=== PATIENT | male | born 1950 | race Caucasian/White ===

== ENCOUNTER → 2018-07-11 09:46 | Outpatient (CLI) | payer OTHER, SELFPAY ==
[2018-07-11 11:33] LABS: Alanine Aminotransferase 22 IU/L (21-72); Albumin 4.5 g/dL (3.5-5.0); Albumin Globulin Ratio 1.7 (1.0-2.8); Alkaline Phosphatase 66 U/L (38-126); Aspartate Aminotransferase 20 IU/L (17-59); BUN Creatinine Ratio 26.3 (6-22); Bilirubin Total 2.5 mg/dL (0.2-1.3); Blood Urea Nitrogen 21 mg/dL (9-20); Calcium 9.3 mg/dL (8.4-10.2); Carbon Dioxide 30 mmol/L (22-32); Chloride 105 mmol/L (98-107); Cholesterol 237 mg/dL (140-199); Estimated Glomerular Filt Rate > 60.0 mL/min (>60); Globulin 2.6 g/dL (1.7-4.1); Glucose 91 mg/dL (80-110); HDL Cholesterol 58 mg/dL (40-60); HEMOLYSIS < 15 (0-50); LDL Cholesterol Calculated 160 mg/dL (<100); Potassium 4.2 mmol/L (3.4-5.1); Sodium 144 mmol/L (137-145); Total Protein 7.1 g/dL (6.3-8.2); Triglycerides 95 mg/dL (35-150)
[2018-07-11 12:00] LABS: Prostate Specific Antigen Scrn 1.02 ng/mL (0.1-4.0)
== END ==
PROVIDERS: PCP Internal Medicine; Visit Provider Internal Medicine
DX: E78.5 Hyperlipidemia, unspecified (principal); Z12.5 Encounter for screening for malignant neoplasm of prostate
CPT/HCPCS: 36415; 80053; 80061; G0103

== ENCOUNTER 2018-07-31 13:31 | Day surgery (SDC) | payer OTHER, SELFPAY ==
[2018-07-31 15:10] VITALS: BP 112/73; PULSE 77; RESP 16; TEMP 36.2; O2SAT 98; BMI 25.8
[2018-07-31] MEDS: PROPARACAINE 0.5% OPHTH SOL 2 DROPS EYE-OP (15:18)
[2018-07-31] MEDS: CATARACT EYE COMPOUND (10 DROPS/SYRINGE) 3 DROPS EYE-OP (15:20)
--- NOTE | 2018-07-31 15:50 | PM.PREOP ---
Pre-operative Note Interval Note Pre-op Check: Yes History & Physical Reviewed by Physician Changes: No
[2018-07-31] MEDS: BALANCED SALT IRRIG SOLN NO.2 500 ML, EPINEPHrine 1 MG IRR (16:10)
[2018-07-31] MEDS: MOXIFLOXACIN OPHTH DROPS 3 ML BOTTLE 2 DROPS INJ (16:10)
[2018-07-31] MEDS: PHENYLEPHRINE/LIDOCAINE VIAL (OR) 0.2 ML EYE-OP (16:10)
[2018-07-31] MEDS: CHONDROIDTIN/SOD HYALURONATE 1.05 ML SYRINGE INTRAOCULA (16:10)
[2018-07-31] MEDS: TETRACAINE 0.5% OPHTH DROPS 15 ML 2 DROPS EYE-RIGHT (16:12)
--- NOTE | 2018-07-31 16:31 | PM.OP.1 ---
Procedure & Clinicians Procedure: cataract extraction with intraocular lens implant, right Same procedure as scheduled: Yes Surgeon: Mark Laboy Click Yes if Unassisted: Yes Anesthesia Type: MAC +/- Operative Notes Closure Type: not applicable Procedure in detail: The patient was brought to the operating suite. The correct patient, surgical site and lens were confirmed. 0.5 % tetracaine drops were placed in the right eye. The patient was prepped and draped in the typical sterile manner. A lid speculum was placed in the eye. A paracentesis port was created with a side-port blade. 0.1 mL of 1% preservative free lidocaine was injected into the anterior chamber. Viscoelastic was injected into the anterior chamber. A 2.6mm keratome was used to create a clear corneal temporal incision. Cystotome and Utrata forceps were used to create a continuous curvilinear capsulorrhexis. Balanced salt solution was used to hydrodissect the nucleus. Phacoemulsification was used to remove the lens. The capsular bag was inflated with viscoelastic. A Han ZBOO 15.5 D lens was inserted into the capsule. Viscoelastic was removed and the wound hydrated. The wound was found to be leak free and the eye was assessed to be at normal physiologic pressure. 0.1mL Vigamox was injected into the anterior chamber. The lid speculum was removed and the patient left the operating room in excellent condition. Complications: none Condition: stable Disposition: same day surgery
[2018-07-31 16:35] VITALS: BP 109/58; PULSE 76; RESP 15; TEMP 36.9; O2SAT 98
--- NOTE | 2018-07-31 16:35 | PM.PREOP ---
Pre-operative Note Interval Note Pre-op Check: Yes History & Physical Reviewed by Physician Changes: No
== END 2018-07-31 16:47 ==
LOC: OR 13:34
PROVIDERS: Ophthalmology; PCP Internal Medicine; Visit Provider Ophthalmology
DX: H25.11 Age-related nuclear cataract, right eye (principal)
CPT/HCPCS: J0171; J2250; J2704

== ENCOUNTER 2018-09-04 11:46 | Day surgery (SDC) | payer OTHER, SELFPAY ==
[2018-09-04 12:15] VITALS: BP 117/77; PULSE 85; RESP 15; TEMP 36.5; O2SAT 99; BMI 26.6
[2018-09-04] MEDS: PROPARACAINE 0.5% OPHTH SOL 2 DROPS EYE-OP (12:20)
[2018-09-04] MEDS: CATARACT EYE COMPOUND (10 DROPS/SYRINGE) 3 DROPS EYE-OP ×3 (12:25→12:35)
--- NOTE | 2018-09-04 12:50 | PM.PREOP ---
Pre-operative Note Interval Note Pre-op Check: Yes History & Physical Reviewed by Physician Changes: No
[2018-09-04] MEDS: PHENYLEPHRINE/LIDOCAINE VIAL (OR) 0.2 ML EYE-OP (14:09)
[2018-09-04] MEDS: MOXIFLOXACIN OPHTH DROPS 3 ML BOTTLE 2 DROPS INJ (14:09)
[2018-09-04] MEDS: CHONDROIDTIN/SOD HYALURONATE 1.05 ML SYRINGE INTRAOCULA (14:09)
[2018-09-04] MEDS: BALANCED SALT IRRIG SOLN NO.2 500 ML, EPINEPHrine 1 MG IRR (14:10)
[2018-09-04] MEDS: TETRACAINE 0.5% OPHTH DROPS 15 ML 2 DROPS EYE-LEFT (14:10)
[2018-09-04] MEDS: LIDOCAINE 2% INJ SDV 0.5 ML TOP (14:11)
--- NOTE | 2018-09-04 14:36 | PM.OP.1 ---
Procedure & Clinicians Procedure: cataract extraction with intraocular lens implant left Same procedure as scheduled: Yes Indications: Visually significant cataract, Nuclear sclerosis Surgeon: Mark Laboy Anesthesia Type: MAC +/- Operative Notes Procedure in detail: The patient was brought to the operating suite. The correct patient, surgical site and lens were confirmed. 0.5 % tetracaine drops were placed in the left eye. The patient was prepped and draped in the typical sterile manner. A lid speculum was placed in the eye. A paracentesis port was created with a side-port blade. 0.1 mL of 1% preservative free lidocaine was injected into the anterior chamber. Viscoelastic was injected into the anterior chamber. A 2.6mm keratome was used to create a clear corneal temporal incision. Cystotome and Utrata forceps were used to create a continuous curvilinear capsulorrhexis. Balanced salt solution was used to hydrodissect the nucleus. Phacoemulsification was used to remove the lens. The capsular bag was inflated with viscoelastic. A Han ZBOO 16.0D lens was inserted into the capsule. Viscoelastic was removed and the wound hydrated, Resure glue was used to reinforce the wound. The wound was found to be leak free and the eye was assessed to be at normal physiologic pressure. 0.1mL Vigamox was injected into the anterior chamber. The lid speculum was removed and the patient left the operating room in excellent condition. Complications: none Condition: stable Disposition: same day surgery
[2018-09-04 15:37] VITALS: PULSE 67; RESP 16; TEMP 36.1; O2SAT 96
== END 2018-09-04 15:05 | disposition home or self-care (01) ==
PROVIDERS: PCP Internal Medicine; Visit Provider Ophthalmology
DX: H25.12 Age-related nuclear cataract, left eye (principal)
CPT/HCPCS: J0171; J2250; J3010

== ENCOUNTER 2019-04-26 10:20 | Emergency (ER) | payer OTHER, SELFPAY ==
[2019-04-26 10:26] VITALS: BP 144/96; PULSE 98; RESP 16; TEMP 36.5; O2SAT 100; BMI 26.6
--- NOTE | 2019-04-26 11:19 | ED.BACK ---
HPI - Back Pain/Injury <LISSA SchmittP - Last Filed: 04/27/19 03:55> General Chief Complaint: Back Pain/Injury Stated Complaint: Back pain Time Seen by Provider: 04/26/19 11:19 Source: patient Mode of arrival: ambulatory Limitations: no limitations History of Present Illness HPI Narrative: This is a pleasant 69-year-old gentlemen, smoker, who presents to ED with nonradiating left lower back pain for 1 week. The patient denies any urinary symptoms such as urgency, frequency, dysuria, hematuria. The patient reports pain aggravates with movements, bearing weight or changing in positions. The patient is intermittent and rates at 1/10 at this time but at times it increases to 8 to 9/10. He denies fever, chills, nausea, vomiting, weakness to extremities, tingling numbness to the groin, incontinence, recent back injury, trauma, heavy lifting. He has no previous history of back pain per patient. Related Data Allergies Allergy/AdvReac Type Severity Reaction Status Date / Time Sulfa (Sulfonamide Allergy Verified 04/26/19 10:26 Antibiotics) Review of Systems <Polo BelloMerLISSA FordP - Last Filed: 04/27/19 03:55> Review of Systems General: Denies fever, chills, fatigue, malaise, sweats. HEENT: Denies sinus pain, ear pain, sore throat, difficulty swallowing, dizziness. Respiratory: Denies dyspnea, cough, wheezing, hemoptysis, sputum. Cardiovascular: Denies chest pain, palpitations, orthopnea, edema. Gastrointestinal: Denies nausea, vomiting, abdominal pain, diarrhea, constipation, melena. : See HPI Musculoskeletal: See HPI Skin: Denies rash, skin lesions, or other. Neurologic: Denies weakness, headache, numbness, change in speech, confusion, seizures, incoordination. Psychiatric: No concerning psychosocial issues. 12-point review of systems is negative except for those stated above. 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 Head: Normal cephalic, atraumatic. No scalp or temporal tenderness, palpable mass or rash. EYES: Pupils are equal, round, and reactive to light and accommodation. Extraocular muscles are intact bilaterally. There is no subconjunctival hemorrhage, exudate and sclera non-icteric. ENT: Nose without bleeding, purulent discharge. Mucous membrane moist, no mucosal lesion. Throat without erythema, tonsillar hypertrophy or exudate. Uvula in midline, airway patent. Neck: Trachea in midline. No JVD, non-tender without lymphadenopathy. No masses or thyroid megaly. Supple, non-tender and meningeal signs. CARDIAC: Normal regular rate and rhythm without murmurs, gallops, or rubs. No chest wall tenderness. No peripheral edema, cyanosis or pallor. Capillary refill is less than 2 seconds. RESPIRATORY: Lungs are cleat to auscultate bilaterally. No cough, wheezes, rales, or rhonchi. No stridor, respiratory distress, increase work of breathing, or accessary muscle used. ABD: Abdomen soft, nontender and non-distended. No guarding or rebound tenderness to palpate. Bowel sounds are normal in all 4 quadrants. There is no palpable masses or organomegaly. EXT: Full painless ROM of all extremities with no loss of sensation, strength, effusion or edema. SKIN: Warm, dry, normal color for patient. No erythema, lesions or rash. NEUROLOGICAL: Alert and oriented to place, time and person. Sensation and motor function intact bilaterally. No facial droops, dysphasia. PSYCHIATRIC: Good judgement and reason, without hallucinations, abnormal affect or abnormal behaviors during the examination. Initial Vital Signs Initial Vital Signs: Vital Signs Temperature 97.7 F 04/26/19 10:26 Pulse Rate 98 H 04/26/19 10:26 Respiratory Rate 16 04/26/19 10:26 Blood Pressure 144/96 H 04/26/19 10:26 Pulse Oximetry 100 04/26/19 10:26 Back/Spine/Pelvis Back: normal to inspection, back tenderness, No CVA tenderness, No ecchymosis, No erythema, No mass, No sacral edema and No warmth Thoracic/Lumbar Spine: thoracic and lumbar spine normal to inspection, straight leg raise negative bilaterally, pain with thoraco-lumbar ROM, paraspinal tenderness, No thoracic spinal tenderness and No lumbar spinal tenderness <DO Mer Vila Last Filed: 04/27/19 08:27> Initial Vital Signs Initial Vital Signs: Vital Signs Temperature 97.7 F 04/26/19 10:26 Pulse Rate 98 H 04/26/19 10:26 Respiratory Rate 16 04/26/19 10:26 Blood Pressure 144/96 H 04/26/19 10:26 Pulse Oximetry 100 04/26/19 10:26 Course <LISSA SchmittP - Last Filed: 04/27/19 03:55> Orders Ordered: ED Orders 04/26/19 11:32 XR lumbar spine 2-3V Stat Vital Signs - 8 hr 04/26/19 10:26 Temperature 97.7 F Pulse Rate 98 H Respiratory Rate 16 Blood Pressure 144/96 H Pulse Oximetry 100 <DO Mer Vila Last Filed: 04/27/19 08:27> Orders Ordered: ED Orders 04/26/19 11:32 XR lumbar spine 2-3V Stat Vital Signs - 8 hr 04/26/19 10:26 Temperature 97.7 F Pulse Rate 98 H Respiratory Rate 16 Blood Pressure 144/96 H Pulse Oximetry 100 MDM - Back Pain/Injury <LISSA SchmittP - Last Filed: 04/27/19 03:55> Differential Diagnosis Differential diagnosis: Likely strain of lumbar region, pyelonephritis and other (kidney stone) Medical Records Attestation: I reviewed the patient's medical records. Lab Data Attestation: I reviewed the patient's lab results. Urine Dip Bedside Urine Glucose Negative Bedside Urine Bilirubin - Negative Bedside Urine Ketone - Negative Urine Specific [place] 1.020 Bedside Urine Occult Blood - Negative Bedside Urine pH 6.5 Bedside Urine Protein - Negative Bedside Urine Urobilinogen +/- 1mg Bedside Urine Nitrite - Negative Bedside Urine Leukocytes - Negative Esterase Imaging Data XR-lumbar: Radiologist's impression: [facility] [address] [place] [address] XRay Report Signed Patient: Jono Thornton DMR#: [id number] : 8Acct:[id number] Age/Sex: 69 / MDate of Service: 04/26/19 Loc: ED Accession Number: [id number] Procedure: XR lumbar spine 2-3V Ordering Provider: Polo Sandoval PROCEDURE: XR LUMBAR SPINE 2-3V INDICATIONS: L low back pain TECHNIQUE: 3 views of the lumbar spine were acquired. COMPARISON: None. FINDINGS: Bones: Moderate dextroconvex scoliosis is seen. There is moderate disc space narrowing seen at T12-L1, L1-L2, and L2-L3. Endplate irregularity and sclerosis are seen, which are most prominent at the L2-L3 level. Relatively prominent lower lumbar spine facet arthropathy is seen. No displaced fractures are seen. No suspicious lytic or blastic lesions are seen. 5 nonrib-bearing, lumbar type vertebral bodies are seen. Soft tissues: Overlying bowel gas pattern is normal. No suspicious soft tissue calcifications. IMPRESSION: Moderate dextroconvex scoliosis and associated degenerative changes. No acute abnormality is seen by plain film. Dictated by: Chilo Montilla M.D. on 04/26/2019 at 10:56 Approved by: Chilo Montilla M.D. on 04/26/2019 at 10:58 [facility] Narrative Medical decision making narrative: This is a pleasant 69 year old gentleman who presents with non radiating left lower back pain. He denies urinary symptoms, incontinence, saddle anesthesia, fever chills, abdominal pain, previous back injuries or trauma. And showed no urine nitrite or leukocytes Estrase or blood. Since there was no hematuria no further imaging test was done to rule out kidney stone. Given patient's history with aggravating pain factors, lumbar x-ray test was done. The x-ray test indicates no displaced fractures no blastic lesions were seen. Impression of x-ray was moderate dextro convex scoliosis and associated degenerative changes. The patient was advised to take [id number] Tylenol and/or Motrin for pain management. Rest his back for next 3 days, support his back during sleep on a firm mattress, pillows behind his knees and to use warm pack. Start light stretching when acute pain has subsided. Patient was advised to follow with his primary care physician in 2-3 days for re-evaluation and possible referral to physical therapy or further imaging test. All questions were answered at this time and the patient agrees with treatment plan. Return precautions were discussed with patient such as saddle anesthesia, incontinence, fevers/chills, severe pain, weakness to extremities, chest pain, difficulty breathing, unable to tolerate fluid. The patient was ambulatory out of the ER in stable gaits. <Shonna Wang DO - Last Filed: 04/27/19 08:27> Lab Data Urine Dip Bedside Urine Glucose Negative Bedside Urine Bilirubin - Negative Bedside Urine Ketone - Negative Urine Specific [place] 1.020 Bedside Urine Occult Blood - Negative Bedside Urine pH 6.5 Bedside Urine Protein - Negative Bedside Urine Urobilinogen +/- 1mg Bedside Urine Nitrite - Negative Bedside Urine Leukocytes - Negative Esterase Discharge Plan Departure Patient Disposition: Home Clinical Impression: Back pain Qualifiers: Back pain location: low back pain Chronicity: acute Back pain laterality: left Sciatica presence: without sciatica Qualified Code(s): M54.5 - Low back pain Discharge Date/Time: 04/26/19 13:25 Interventions: ED Discharge Assessment Last Done: 04/26/19 13:24 Instructions: DI for Low Back Pain, Scoliosis-Adult Activity Restrictions/Additional Instructions: You have been diagnosed with [ low back pain. Your urine did not show of occult blood and does not appears to be having a kidney stone. However, the low back xray showed scoliosis and degenerative joint changes in low back]. What to do: *Take your medications as directed. Please take [id number] Tylenol, or NSAIDs including ibuprofen as needed for the back pain. Please take ibuprofen/Motrin with food or milk to decrease stomach irritation. When the acute pain is over stretching is helpful. You could use warm pack to relax your back muscle. Limit her activities until your back pain improves. *Follow up with your primary care provider in 2-3 days, call for an appointment. Let them know you were seen in the ED and that we asked you to be seen in follow up. *Return to ED if you have any new, worsening, or concerning symptoms, such as [fever, chills, increasing pain, nausea, vomiting, chest pain, breathing difficulty, decreased sensation in her perineum area, incontinence or any acute concerns]. Referrals: Markus Boone MD [Primary Care Provider] - <Shonna Wang DO - Last Filed: 04/27/19 08:27> Cosign ED Attending Cosignature Attestation: I was immediately available in the department for consultation, case and plan was discussed. This documentation has been reviewed and I agree with assessment and plan. Supervised by Shonna Wang DO
--- NOTE | 2019-04-26 11:32 | DI.RAD.S_ITS ---
PROCEDURE: XR LUMBAR SPINE 2-3V INDICATIONS: L low back pain TECHNIQUE: 3 views of the lumbar spine were acquired. COMPARISON: None. FINDINGS: Bones: Moderate dextroconvex scoliosis is seen. There is moderate disc space narrowing seen at T12-L1, L1-L2, and L2-L3. Endplate irregularity and sclerosis are seen, which are most prominent at the L2-L3 level. Relatively prominent lower lumbar spine facet arthropathy is seen. No displaced fractures are seen. No suspicious lytic or blastic lesions are seen. 5 nonrib-bearing, lumbar type vertebral bodies are seen. Soft tissues: Overlying bowel gas pattern is normal. No suspicious soft tissue calcifications. IMPRESSION: Moderate dextroconvex scoliosis and associated degenerative changes. No acute abnormality is seen by plain film. Dictated by: Chilo Montilla M.D. on 04/26/2019 at 10:56 Approved by: Chilo Montilla M.D. on 04/26/2019 at 10:58
--- NOTE | 2019-04-26 12:04 | ED_ITS ---
HPI - Back Pain/Injury <LISSA SchmittP - Last Filed: 04/27/19 03:55> General Chief Complaint: Back Pain/Injury Stated Complaint: Back pain Time Seen by Provider: 04/26/19 11:19 Source: patient Mode of arrival: ambulatory Limitations: no limitations History of Present Illness HPI Narrative: This is a pleasant 69-year-old gentlemen, smoker, who presents to ED with nonradiating left lower back pain for 1 week. The patient denies any urinary symptoms such as urgency, frequency, dysuria, hematuria. The patient reports pain aggravates with movements, bearing weight or changing in positions. The patient is intermittent and rates at 1/10 at this time but at times it increases to 8 to 9/10. He denies fever, chills, nausea, vomiting, weakness to extremities, tingling numbness to the groin, incontinence, recent back injury, trauma, heavy lifting. He has no previous history of back pain per patient. Related Data Allergies Allergy/AdvReac Type Severity Reaction Status Date / Time Sulfa (Sulfonamide Allergy Verified 04/26/19 10:26 Antibiotics) Review of Systems <Polo BelloMerLISSA FordP - Last Filed: 04/27/19 03:55> Review of Systems General: Denies fever, chills, fatigue, malaise, sweats. HEENT: Denies sinus pain, ear pain, sore throat, difficulty swallowing, dizziness. Respiratory: Denies dyspnea, cough, wheezing, hemoptysis, sputum. Cardiovascular: Denies chest pain, palpitations, orthopnea, edema. Gastrointestinal: Denies nausea, vomiting, abdominal pain, diarrhea, constipation, melena. : See HPI Musculoskeletal: See HPI Skin: Denies rash, skin lesions, or other. Neurologic: Denies weakness, headache, numbness, change in speech, confusion, seizures, incoordination. Psychiatric: No concerning psychosocial issues. 12-point review of systems is negative except for those stated above. 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 Head: Normal cephalic, atraumatic. No scalp or temporal tenderness, palpable mass or rash. EYES: Pupils are equal, round, and reactive to light and accommodation. Extraocular muscles are intact bilaterally. There is no subconjunctival hemorrhage, exudate and sclera non-icteric. ENT: Nose without bleeding, purulent discharge. Mucous membrane moist, no mucosal lesion. Throat without erythema, tonsillar hypertrophy or exudate. Uvula in midline, airway patent. Neck: Trachea in midline. No JVD, non-tender without lymphadenopathy. No masses or thyroid megaly. Supple, non-tender and meningeal signs. CARDIAC: Normal regular rate and rhythm without murmurs, gallops, or rubs. No chest wall tenderness. No peripheral edema, cyanosis or pallor. Capillary refill is less than 2 seconds. RESPIRATORY: Lungs are cleat to auscultate bilaterally. No cough, wheezes, rales, or rhonchi. No stridor, respiratory distress, increase work of breathing, or accessary muscle used. ABD: Abdomen soft, nontender and non-distended. No guarding or rebound tenderness to palpate. Bowel sounds are normal in all 4 quadrants. There is no palpable masses or organomegaly. EXT: Full painless ROM of all extremities with no loss of sensation, strength, effusion or edema. SKIN: Warm, dry, normal color for patient. No erythema, lesions or rash. NEUROLOGICAL: Alert and oriented to place, time and person. Sensation and motor function intact bilaterally. No facial droops, dysphasia. PSYCHIATRIC: Good judgement and reason, without hallucinations, abnormal affect or abnormal behaviors during the examination. Initial Vital Signs Initial Vital Signs: Vital Signs Temperature 97.7 F 04/26/19 10:26 Pulse Rate 98 H 04/26/19 10:26 Respiratory Rate 16 04/26/19 10:26 Blood Pressure 144/96 H 04/26/19 10:26 Pulse Oximetry 100 04/26/19 10:26 Back/Spine/Pelvis Back: normal to inspection, back tenderness, No CVA tenderness, No ecchymosis, No erythema, No mass, No sacral edema and No warmth Thoracic/Lumbar Spine: thoracic and lumbar spine normal to inspection, straight leg raise negative bilaterally, pain with thoraco-lumbar ROM, paraspinal tenderness, No thoracic spinal tenderness and No lumbar spinal tenderness <DO Mer Vila Last Filed: 04/27/19 08:27> Initial Vital Signs Initial Vital Signs: Vital Signs Temperature 97.7 F 04/26/19 10:26 Pulse Rate 98 H 04/26/19 10:26 Respiratory Rate 16 04/26/19 10:26 Blood Pressure 144/96 H 04/26/19 10:26 Pulse Oximetry 100 04/26/19 10:26 Course <LISSA SchmittP - Last Filed: 04/27/19 03:55> Orders Ordered: ED Orders 04/26/19 11:32 XR lumbar spine 2-3V Stat Vital Signs - 8 hr 04/26/19 10:26 Temperature 97.7 F Pulse Rate 98 H Respiratory Rate 16 Blood Pressure 144/96 H Pulse Oximetry 100 <DO Mer Vila Last Filed: 04/27/19 08:27> Orders Ordered: ED Orders 04/26/19 11:32 XR lumbar spine 2-3V Stat Vital Signs - 8 hr 04/26/19 10:26 Temperature 97.7 F Pulse Rate 98 H Respiratory Rate 16 Blood Pressure 144/96 H Pulse Oximetry 100 MDM - Back Pain/Injury <LISSA SchmittP - Last Filed: 04/27/19 03:55> Differential Diagnosis Differential diagnosis: Likely strain of lumbar region, pyelonephritis and other (kidney stone) Medical Records Attestation: I reviewed the patient's medical records. Lab Data Attestation: I reviewed the patient's lab results. Urine Dip Bedside Urine Glucose Negative Bedside Urine Bilirubin - Negative Bedside Urine Ketone - Negative Urine Specific Easley 1.020 Bedside Urine Occult Blood - Negative Bedside Urine pH 6.5 Bedside Urine Protein - Negative Bedside Urine Urobilinogen +/- 1mg Bedside Urine Nitrite - Negative Bedside Urine Leukocytes - Negative Esterase Imaging Data XR-lumbar: Radiologist's impression: [facility] [address] [place] [address] XRay Report Signed Patient: Jono Thonrton DMR#: [id number] : 8Acct:[id number] Age/Sex: 69 / MDate of Service: 04/26/19 Loc: ED Accession Number: [id number] Procedure: XR lumbar spine 2-3V Ordering Provider: Polo Sandoval PROCEDURE: XR LUMBAR SPINE 2-3V INDICATIONS: L low back pain TECHNIQUE: 3 views of the lumbar spine were acquired. COMPARISON: None. FINDINGS: Bones: Moderate dextroconvex scoliosis is seen. There is moderate disc space narrowing seen at T12-L1, L1-L2, and L2-L3. Endplate irregularity and sclerosis are seen, which are most prominent at the L2-L3 level. Relatively prominent lower lumbar spine facet arthropathy is seen. No displaced fractures are seen. No suspicious lytic or blastic lesions are seen. 5 nonrib-bearing, lumbar type vertebral bodies are seen. Soft tissues: Overlying bowel gas pattern is normal. No suspicious soft tissue calcifications. IMPRESSION: Moderate dextroconvex scoliosis and associated degenerative changes. No acute abnormality is seen by plain film. Dictated by: Chilo Montilla M.D. on 04/26/2019 at 10:56 Approved by: Chilo Montilla M.D. on 04/26/2019 at 10:58 [facility] Narrative Medical decision making narrative: This is a pleasant 69 year old gentleman who presents with non radiating left lower back pain. He denies urinary symptoms, i ncontinence, saddle anesthesia, fever chills, abdominal pain, previous back injuries or trauma. And showed no urine nitrite or leukocytes Estrase or blood. Since there was no hematuria no further imaging test was done to rule out kidney stone. Given patient's history with aggravating pain factors, lumbar x- ray test was done. The x-ray test indicates no displaced fractures no blastic lesions were seen. Impression of x-ray was moderate dextro convex scoliosis and associated degenerative changes. The patient was advised to take [id number] Tylenol and/or Motrin for pain management. Rest his back for next 3 days, support his back during sleep on a firm mattress, pillows behind his knees and to use warm pack. Start light stretching when acute pain has subsided. Patient was advised to follow with his primary care physician in 2-3 days for re-evaluation and possible referral to physical therapy or further imaging test. All questions were answered at this time and the patient agrees with treatment plan. Return precautions were discussed with patient such as saddle anesthesia, incontinence, fevers/chills, severe pain, weakness to extremities, chest pain, difficulty breathing, unable to tolerate fluid. The patient was ambulatory out of the ER in stable gaits. <Shonna Wang, - Last Filed: 04/27/19 08:27> Lab Data Urine Dip Bedside Urine Glucose Negative Bedside Urine Bilirubin - Negative Bedside Urine Ketone - Negative Urine Specific Easley 1.020 Bedside Urine Occult Blood - Negative Bedside Urine pH 6.5 Bedside Urine Protein - Negative Bedside Urine Urobilinogen +/- 1mg Bedside Urine Nitrite - Negative Bedside Urine Leukocytes - Negative Esterase Discharge Plan Departure Patient Disposition: Home Clinical Impression: Back pain Qualifiers: Back pain location: low back pain Chronicity: acute Back pain laterality: left Sciatica presence: without sciatica Qualified Code(s): M54.5 - Low back pain Discharge Date/Time: 04/26/19 13:25 Interventions: ED Discharge Assessment Last Done: 04/26/19 13:24 Instructions: DI for Low Back Pain, Scoliosis-Adult Activity Restrictions/Additional Instructions: You have been diagnosed with [ low back pain. Your urine did not show of occult blood and does not appears to be having a kidney stone. However, the low back xray showed scoliosis and degenerative joint changes in low back]. What to do: *Take your medications as directed. Please take [id number] Tylenol, or NSAIDs including ibuprofen as needed for the back pain. Please take ibuprofen/Motrin with food or milk to decrease stomach irritation. When the acu te pain is over stretching is helpful. You could use warm pack to relax your back muscle. Limit her activities until your back pain improves. *Follow up with your primary care provider in 2-3 days, call for an appointment. Let them know you were seen in the ED and that we asked you to be seen in follow up. *Return to ED if you have any new, worsening, or concerning symptoms, such as [fever, chills, increasing pain, nausea, vomiting, chest pain, breathing difficulty, decreased sensation in her perineum area, incontinence or any acute concerns]. Referrals: Markus Boone MD [Primary Care Provider] - <Shonna Wang DO - Last Filed: 04/27/19 08:27> Cosign ED Attending Cosignature Attestation: I was immediately available in the department for consultation, case and plan was discussed. This documentation has been reviewed and I agree with assessment and plan. Supervised by Shonna Wang DO
[2019-04-26 13:24] VITALS: BP 133/86; PULSE 69; O2SAT 100
== END 2019-04-26 13:25 | disposition home or self-care (01) ==
PROVIDERS: Emergency Provider Nurse Practitioner Family; PCP Internal Medicine
DX: M54.5 Low back pain (principal)
CPT/HCPCS: 72100; 81003; 99283

== ENCOUNTER → 2019-07-20 10:10 | Outpatient (CLI) | payer OTHER, SELFPAY ==
[2019-07-20 11:17] LABS: Add Manual Diff / Slide Review NO; Basophils Absolute Auto 100 /uL (0-100); Basophils Percent Auto 1.1 % (0-2); Eosinophils Absolute Auto 200 /uL (0-450); Eosinophils Percent Auto 2.5 % (2-4); Hematocrit 47.7 % (41-53); Lymphocytes Absolute Auto 1300 /uL (1100-4500); Lymphocytes Percent Auto 18.1 % (25-40); Mean Corpuscular HGB Conc 35.7 % (30-36); Mean Corpuscular Hemoglobin 32.7 PG (26-34); Mean Corpuscular Volume 91.7 fL (80-100); Monocytes Absolute Auto 900 /uL (0-900); Monocytes Percent Auto 12.1 % (3-14); Neutrophils Absolute Auto 4900 /uL (1500-7000); Neutrophils Percent Auto 66.2 % (50-75); Platelet Count 180 X10^3/uL (150-400); Red Cell Distribution Width 13.5 % (11.6-14.8); White Blood Cell Count 7.4 X10^3/uL (4.5-11.0)
[2019-07-20 11:26] LABS: Alanine Aminotransferase 17 IU/L (21-72); Albumin 4.6 g/dL (3.5-5.0); Albumin Globulin Ratio 1.6 (1.0-2.8); Alkaline Phosphatase 63 U/L (38-126); Aspartate Aminotransferase 31 IU/L (17-59); Bilirubin Total 1.3 mg/dL (0.2-1.3); Blood Urea Nitrogen 20 mg/dL (9-20); Calcium 9.7 mg/dL (8.4-10.2); Carbon Dioxide 29 mmol/L (22-32); Chloride 107 mmol/L (98-107); Estimated Glomerular Filt Rate > 60.0 mL/min (>60); Globulin 2.8 g/dL (1.7-4.1); Glucose 89 mg/dL (80-110); HEMOLYSIS 46 (0-50); Potassium 4.8 mmol/L (3.4-5.1); Sodium 143 mmol/L (137-145); Total Protein 7.4 g/dL (6.3-8.2)
[2019-07-20 11:53] LABS: Prostate Specific Antigen Scrn 1.11 ng/mL (0.1-4.0)
[2019-07-20 12:17] LABS: Free T4, Direct Thyroxine 1.12 ng/dL (0.78-2.19)
== END ==
PROVIDERS: PCP Internal Medicine; Visit Provider Internal Medicine
DX: Z13.1 Encounter for screening for diabetes mellitus (principal); R53.81 Other malaise; R53.83 Other fatigue; Z13.6 Encounter for screening for cardiovascular disorders; Z12.5 Encounter for screening for malignant neoplasm of prostate
CPT/HCPCS: 36415; 80053; 84439; 84443; 85025; G0103

== ENCOUNTER → 2020-10-20 08:42 | Outpatient (CLI) | payer MEDICARE, SELFPAY ==
[2020-10-20] MEDS: COVID-19 VACC #1, MRNA(MOD) 100 MCG/0.5 ML VIAL IM (08:48)
== END ==
PROVIDERS: PCP Internal Medicine; Visit Provider Internal Medicine
DX: Z23 Encounter for immunization (principal)
CPT/HCPCS: 0011A; 91301

== ENCOUNTER → 2020-11-10 09:46 | Outpatient (CLI) | payer MEDICARE, SELFPAY ==
[2020-11-10 11:10] LABS: Alanine Aminotransferase 23 IU/L (<50); Albumin 4.3 g/dL (3.5-5.0); Albumin Globulin Ratio 1.5 (1.0-2.8); Alkaline Phosphatase 78 U/L (38-126); Aspartate Aminotransferase 27 IU/L (17-59); BUN Creatinine Ratio 20.9 (6-22); Bilirubin Total 1.3 mg/dL (0.2-1.3); Blood Urea Nitrogen 18 mg/dL (9-20); Calcium 9.4 mg/dL (8.4-10.2); Carbon Dioxide 31 mmol/L (22-32); Chloride 102 mmol/L (98-107); Cholesterol 253 mg/dL (140-199); Estimated Glomerular Filt Rate > 60.0 mL/min (>60); Globulin 2.9 g/dL (1.7-4.1); Glucose 99 mg/dL (80-110); HDL Cholesterol 62 mg/dL (40-60); HEMOLYSIS < 15 (0-50); LDL Cholesterol Calculated 163 mg/dL (<100); Potassium 4.2 mmol/L (3.4-5.1); Sodium 137 mmol/L (137-145); Total Protein 7.2 g/dL (6.3-8.2); Triglycerides 142 mg/dL (35-150)
[2020-11-10 11:41] LABS: Prostate Specific Antigen Scrn 1.48 ng/mL (0.1-4.0)
== END ==
PROVIDERS: PCP Internal Medicine; Referring Provider Internal Medicine; Visit Provider Internal Medicine
DX: E78.2 Mixed hyperlipidemia (principal); Z12.5 Encounter for screening for malignant neoplasm of prostate; Z13.1 Encounter for screening for diabetes mellitus
CPT/HCPCS: 36415; 80053; 80061; G0103

== ENCOUNTER → 2020-11-17 14:08 | Outpatient (CLI) | payer MEDICARE, SELFPAY ==
[2020-11-17] MEDS: COVID-19 VACC #2, MRNA(MOD) 100 MCG/0.5 ML VIAL IM (14:09)
== END ==
PROVIDERS: PCP Internal Medicine; Visit Provider Internal Medicine
DX: Z23 Encounter for immunization (principal)
CPT/HCPCS: 0012A; 91301

== ENCOUNTER → 2022-02-10 07:44 | Outpatient (CLI) | payer MEDICARE, SELFPAY ==
[2022-02-10 09:16] LABS: Alanine Aminotransferase 15 IU/L (<50); Albumin 4.2 g/dL (3.5-5.0); Albumin Globulin Ratio 1.6 (1.0-2.8); Alkaline Phosphatase 67 U/L (38-126); Aspartate Aminotransferase 23 IU/L (17-59); BUN Creatinine Ratio 22.2 (6-22); Bilirubin Total 1.3 mg/dL (0.2-1.3); Blood Urea Nitrogen 20 mg/dL (9-20); Calcium 9.1 mg/dL (8.4-10.2); Carbon Dioxide 29 mmol/L (22-32); Chloride 106 mmol/L (98-107); Cholesterol 209 mg/dL (140-199); Estimated Glomerular Filt Rate > 60 mL/min (>60); Globulin 2.6 g/dL (1.7-4.1); Glucose 96 mg/dL (80-110); HDL Cholesterol 54 mg/dL (40-60); HEMOLYSIS < 15 (0-50); LDL Cholesterol Calculated 133 mg/dL (<100); Potassium 4.4 mmol/L (3.4-5.1); Sodium 139 mmol/L (137-145); Total Protein 6.8 g/dL (6.3-8.2); Triglycerides 109 mg/dL (35-150)
[2022-02-10 09:47] LABS: TSH w/ Reflex to FT4 1.16 uIU/mL (0.47-4.68)
== END ==
PROVIDERS: PCP Internal Medicine; Referring Provider Internal Medicine; Visit Provider Internal Medicine
DX: E78.2 Mixed hyperlipidemia (principal); I95.9 Hypotension, unspecified
CPT/HCPCS: 36415; 80053; 80061; 84443

== ENCOUNTER → 2022-05-03 12:28 | Outpatient (CLI) | payer MEDICARE, SELFPAY ==
[2022-05-03 14:09] LABS: Add Manual Diff / Slide Review NO; Basophils Absolute Auto 100 /uL (0-100); Basophils Percent Auto 1.2 % (0-2); Eosinophils Absolute Auto 200 /uL (0-450); Eosinophils Percent Auto 2.6 % (2-4); Hematocrit 44.5 % (41-53); Hemoglobin 15.4 g/dL (13.5-17.5); Lymphocytes Absolute Auto 1700 /uL (1100-4500); Lymphocytes Percent Auto 25.5 % (25-40); Mean Corpuscular HGB Conc 34.6 % (30-36); Mean Corpuscular Hemoglobin 31.9 PG (26-34); Mean Corpuscular Volume 92.2 fL (80-100); Monocytes Absolute Auto 800 /uL (0-900); Monocytes Percent Auto 11.2 % (3-14); Neutrophils Absolute Auto 4000 /uL (1500-7000); Neutrophils Percent Auto 59.5 % (50-75); Platelet Count 169 X10^3/uL (150-400); Red Blood Cell Count 4.83 X10^6/uL (4.5-5.9); Red Cell Distribution Width 13.9 % (11.6-14.8); White Blood Cell Count 6.7 X10^3/uL (4.5-11.0)
[2022-05-03 15:08] LABS: Alanine Aminotransferase 15 IU/L (<50); Albumin 4.1 g/dL (3.5-5.0); Albumin Globulin Ratio 1.6 (1.0-2.8); Alkaline Phosphatase 64 U/L (38-126); Aspartate Aminotransferase 23 IU/L (17-59); Blood Urea Nitrogen 17 mg/dL (9-20); Carbon Dioxide 33 mmol/L (22-32); Chloride 104 mmol/L (98-107); Estimated Glomerular Filt Rate > 60 mL/min (>60); Globulin 2.6 g/dL (1.7-4.1); Glucose 79 mg/dL (80-110); HEMOLYSIS < 15 (0-50); Potassium 4.2 mmol/L (3.4-5.1); Sodium 138 mmol/L (137-145); Total Protein 6.7 g/dL (6.3-8.2)
[2022-05-03 15:27] LABS: Prolactin 8.7 ng/mL (3.7-17.9)
[2022-05-03 15:31] LABS: Free T4, Direct Thyroxine 1.01 ng/dL (0.78-2.19)
[2022-05-03 15:44] LABS: Thyroid Stimulating Hormone 0.875 uIU/mL (0.47-4.68)
== END ==
PROVIDERS: PCP Internal Medicine; Referring Provider Internal Medicine; Visit Provider Internal Medicine
DX: R42 Dizziness and giddiness (principal); F34.1 Dysthymic disorder
CPT/HCPCS: 36415; 80053; 84146; 84439; 84443; 85025

== ENCOUNTER → 2023-12-09 07:25 | Outpatient (CLI) | payer OTHER, SELFPAY ==
--- NOTE | 2023-12-09 07:26 | DI.RAD.S_ITS ---
PROCEDURE: XR LUMBAR SPINE MIN 4V INDICATIONS: LOW BACK PAIN TECHNIQUE: 5 views of the lumbar spine were acquired, including bilateral oblique views. COMPARISON: Located Within [facility], CR, XR LUMBAR SPINE 2-3V, 04/26/2019, 11:36. FINDINGS: Bones: 5 nonrib-bearing vertebrae are present. There is rightward scoliotic curvature with apex at L2-3. There is multilevel trace retrolisthesis most severe at L2 on L3. Multilevel moderate to severe disc and foraminal narrowing most prominent L4-5, L5-S1. Scattered anterior osteophytes are present. No vertebral body compression fractures. No suspicious bony lesions. Soft tissues: Overlying bowel gas pattern is normal. No suspicious soft tissue calcifications. Oblique images: No pars defects. IMPRESSION: Multilevel disc and foraminal narrowing as above most severe at L5-S1. Dictated by: Bibi Gaspar M.D. on 12/09/2023 at 13:55 Approved by: Bibi Gaspar M.D. on 12/09/2023 at 13:55
== END ==
PROVIDERS: PCP Internal Medicine; Referring Provider Anesthesiology; Visit Provider Anesthesiology
DX: M48.07 Spinal stenosis, lumbosacral region (principal); M48.061 Spinal stenosis, lumbar region without neurogenic claudication; M47.816 Spondylosis without myelopathy or radiculopathy, lumbar region; M51.36 Other intervertebral disc degeneration, lumbar region; M54.50 Low back pain, unspecified; G89.29 Other chronic pain
CPT/HCPCS: 72110; 99214

== ENCOUNTER → 2023-12-12 10:49 | Outpatient (CLI) | payer MEDICARE, SELFPAY ==
--- NOTE | 2023-12-12 10:52 | DI.RAD.S_ITS ---
PROCEDURE: XR TOE RT MIN 2V INDICATIONS: toe vs. lawnmower jammed 2-3 days ago felt pop TECHNIQUE: 3 views of the great toe(s) acquired. COMPARISON: None. FINDINGS: Bones: Osteoarthritic changes are noted throughout right great toe with joint space narrowing, subchondral sclerosis and subcortical cystic changes. Cortical irregularity involving dorsal and medial aspect of 1st distal phalangeal base concerning for subtle nondisplaced fracture or, suggest clinical correlation.. No suspicious bony lesions. Soft tissues: Soft tissue swelling adjacent to great toe is seen with possible laceration in dorsal and medial aspect. No radiopaque foreign bodies. IMPRESSION: 1. Finding is concerning for nondisplaced fracture or incomplete fracture involving dorsal and medial aspect of 1st distal phalangeal base. 2. Overlying soft tissue swelling and laceration. No radiopaque foreign bodies. Dictated by: Roderick Silva M.D. on 12/12/2023 at 11:27 Approved by: Roderick Silva M.D. on 12/12/2023 at 11:31
== END ==
PROVIDERS: PCP Internal Medicine; Referring Provider Physician Assistant Medical; Visit Provider Physician Assistant Medical
DX: S91.111A Laceration without foreign body of right great toe without damage to nail, initial encounter (principal); S90.121A Contusion of right lesser toe(s) without damage to nail, initial encounter; M79.89 Other specified soft tissue disorders; W31.89XA Contact with other specified machinery, initial encounter
CPT/HCPCS: 73660

== ENCOUNTER → 2024-03-17 12:23 | Outpatient (CLI) | payer MEDICARE, SELFPAY ==
--- NOTE | 2024-03-17 12:24 | DI.MRI.S_ITS ---
PROCEDURE: MR LUMBAR SPINE WO CON INDICATIONS: Low back pain, neurogenic claudication symptoms TECHNIQUE: Noncontrast sagittal T1 spin echo and T2 fast echo, sagittal STIR, and T2 fast spin echo through the lumbar spine. In cases with scoliosis, additional coronal T2 fast spin echo may be performed. COMPARISON: [facility], CR, XR LUMBAR SPINE MIN 4V, 12/09/2023, 7:37. FINDINGS: Image quality: Excellent. Alignment and Curvature: Dijr-jh-ggqpfofl dextrocurvature centered at L2. And Bone Marrow: Marrow is of normal overall signal. No acute vertebral body compression fractures. Spinal Cord: Conus medullaris terminates at the L1-L2 level. Visualized cord demonstrates normal signal and size. Paraspinous Soft Tissues: No paravertebral masses. T12-L1: Left facet hypertrophy. No canal stenosis or foraminal stenosis. L1-L2: Minimal disc bulge. Mild facet hypertrophy. No canal stenosis or foraminal stenosis. L2-L3: Severe disc height loss. Posterior disc post osteophyte. Facet hypertrophy. No significant canal stenosis. Mild bilateral foraminal stenosis. L3-L4: Disc bulge. Facet hypertrophy. Mild canal stenosis. Vrgr-cc-cyxhvagu bilateral foraminal narrowing with mild flattening deformity on the inferior aspect of the exiting bilateral L3 nerve roots. L4-L5: Disc bulge. Facet hypertrophy. Mild canal stenosis. Moderate right foraminal narrowing with flattening deformity on the exiting right L4 nerve root. L5-S1: Disc bulge. Facet hypertrophy. No canal stenosis. Mild bilateral foraminal narrowing. IMPRESSION: 1. Of underlying dextrocurvature and multilevel facet arthropathy. 2. Mild canal stenosis at L3-L4 and L4-L5. 3. Multilevel relatively mild foraminal narrowing. Findings include moderate right foraminal narrowing at L4-L5. Dictated by: Arden Vieyra M.D. on 03/17/2024 at 18:02 Approved by: Arden Vieyra M.D. on 03/17/2024 at 18:06
== END ==
PROVIDERS: PCP Internal Medicine; Referring Provider Anesthesiology; Visit Provider Anesthesiology
DX: M51.36 Other intervertebral disc degeneration, lumbar region (principal); M47.816 Spondylosis without myelopathy or radiculopathy, lumbar region; M47.817 Spondylosis without myelopathy or radiculopathy, lumbosacral region; M48.061 Spinal stenosis, lumbar region without neurogenic claudication; M48.07 Spinal stenosis, lumbosacral region; M54.50 Low back pain, unspecified; G89.29 Other chronic pain
CPT/HCPCS: 72148

== ENCOUNTER 2024-05-06 08:32 | Outpatient (CLI) | payer MEDICARE, SELFPAY ==
[2024-05-06 09:30] VITALS: BP 118/71; PULSE 73; RESP 16; TEMP 36.4; O2SAT 99
[2024-05-06 10:02] VITALS: BP 125/65; PULSE 67; RESP 18; O2SAT 99
[2024-05-06 10:05] VITALS: BP 125/68; PULSE 66; RESP 18; O2SAT 99
[2024-05-06] MEDS: DEXAMETHASONE 10 MG/ML VIAL INJ (10:07)
[2024-05-06] MEDS: iopamidoL 15 ML VIAL 3 ML INJ (10:07)
[2024-05-06] MEDS: LIDOCAINE 1% (PF) 5 ML INJ (10:08)
[2024-05-06 10:10] VITALS: BP 120/63; PULSE 65; RESP 17; O2SAT 100
--- NOTE | 2024-05-06 10:15 | DI.RAD.S_ITS ---
PROCEDURE: PAIN L INTERLAMINAR/CAUDAL INJ INDICATIONS: SPONDYLOSIS COMPARISON: None. FINDINGS: Fluoroscopic spot filming was performed to verify placement of spinal needles at the L4-5 level(s), as labeled on the films. Appropriate location(s) of the needle tip(s) was confirmed by injection of iodinated contrast. IMPRESSION: Fluoro guidance was provided intraoperatively for L4-5 interlaminar MEGA performed by ordering physician. Dictated by: Roderick Silva M.D. on 05/06/2024 at 16:28 Approved by: Roderick Silva M.D. on 05/06/2024 at 16:28
--- NOTE | 2024-05-06 10:17 | P.PCN_ITS ---
Date/Time/Diagnoses Date of procedure: 05/06/24 Time of procedure: 10:00 Procedure Notes Physician: Fan Fox Total Fluoroscopy time (seconds): 11 Total sedation minutes: 0 Procedure in detail & Post-procedure care: L4-5 Interlaminar Epidural Steroid Injection Indications: Claudy is presenting for treatment of lumbar radiculopathy with low back and leg pain. Preoperative diagnosis: Lumbar radiculopathy Postoperative diagnosis: Same Focused Examination: Ax3 Mood and affect are normal Vital Signs: VSS Consent: Following review of allergies and potential side effects/complications, including, but not necessarily limited to, infection, allergic reaction, local tissue breakdown, stroke, temporary or permanent nerve injury, paralysis, and possible , the patient indicated that they understood and agreed to proceed.? An informed consent document was signed by the patient, witnessed by a nurse and placed in the patient's chart.? Additionally, other treatment options including medications and physical therapy were reviewed with the patient. All questions were answered. Site was then marked. Anesthesia: Local Position: Prone Monitoring: NIBP, Pulse oximetry, 3 lead EKG Needle used: 18 G 3.5? Tuohy Contrast: Isovue 300M Injectate: Dexamethasone 10 mg with 1% lidocaine 2 mL Technique: The skin was prepped with chloraprep and then draped in a sterile fashion. Time out was performed as per protocol. Oxygen applied via NC. Skin and subcutaneous structures of the needle entry site was then infiltrated with 3 mL of lidocaine 1%. Under AP, lateral and contralateral oblique fluoroscopic control, the Tuohy needle was guided into the L4-5 epidural space. The space was accessed with loss of resistance technique. Isovue 300M was then injected and the spread was consistent with the epidural space. There was no evidence for intravascular or intrathecal uptake. After negative aspiration, the above- mentioned injectate was then slowly administered and the needle withdrawn. The patient expressed no unusual discomfort or paresthesias during the injection. Band-Aids applied to injection sites. EBL: less than 1 ml Complications: None Post Procedure: Patient was taken to the recovery and monitored. The patient was provided a Pain Log to continue to record the patient's response to the target- specific procedure prior to the patient's follow-up visit with the referring physician. Patient was stable upon discharge. Detailed post procedure instructions were provided. Patient was asked to call in the event of worsening pain, fever, weakness, numbness or bladder or bowel incontinence.
[2024-05-06 10:18] VITALS: BP 120/78; PULSE 72; RESP 18; O2SAT 99
== END 2024-05-06 10:25 | disposition home or self-care (01) ==
LOC: RAD 08:32
PROVIDERS: PCP Internal Medicine; Referring Provider Anesthesiology; Visit Provider Anesthesiology
DX: M54.16 Radiculopathy, lumbar region (principal)
CPT/HCPCS: 62323; J1100

== ENCOUNTER 2024-11-05 13:29 | Outpatient (CLI) | payer MEDICARE, SELFPAY ==
--- NOTE | 2024-11-05 13:30 | DI.RAD.S_ITS ---
PROCEDURE: PAIN L/S FACET INJ/BLK 1ST FRANCISCO INDICATIONS: Bilateral L3-L4 and L5 medial branch block LA COMPARISON: None. FINDINGS/IMPRESSION: Fluoroscopic spot filming was performed to verify placement of spinal needles at the bilateral L3-L4 , L4-L5, and L5-S1 level(s), as labeled on the films. Appropriate location(s) of the needle tip(s) was confirmed by injection of iodinated contrast. Dictated by: Henry Ruiz M.D. on 11/05/2024 at 17:03 Approved by: Henry Ruiz M.D. on 11/05/2024 at 17:04
[2024-11-05 13:55] VITALS: BP 153/83; PULSE 62; RESP 16; TEMP 36.6; O2SAT 96
[2024-11-05 14:30] VITALS: BP 120/76; PULSE 62; RESP 16; O2SAT 100
[2024-11-05 14:35] VITALS: BP 156/87; PULSE 61; RESP 15; O2SAT 100
[2024-11-05 14:40] VITALS: BP 155/87; PULSE 65; RESP 14; O2SAT 100
[2024-11-05] MEDS: LIDOCAINE 1% 20 ML 5 ML INJ (14:42)
[2024-11-05] MEDS: iopamidoL 15 ML VIAL 3 ML INJ (14:42)
[2024-11-05] MEDS: BUPIVACAINE 0.5% (PF) 10 ML VIAL 5 ML INJ (14:42)
[2024-11-05 14:45] VITALS: BP 152/86; PULSE 63; RESP 14; O2SAT 100
--- NOTE | 2024-11-05 14:52 | P.PCN_ITS ---
Date/Time/Diagnoses Date of procedure: 11/05/24 Time of procedure: 14:52 Pre-procedure diagnosis: FACET ARTHROPATHY Post-procedure diagnosis: same Procedure Notes Procedure: 1. BILATERAL L3, L4 AND L5 DIAGNOSTIC MB BLOCKS Indications: Jono is referred by Dr. Boone for treatment of Bilateral Axial LBP. Physician: Ky Briones Total Fluoroscopy time (seconds): 8 Total sedation minutes: 0 Complications: none Procedure in detail & Post-procedure care: DESCRIPTION OF PROCEDURE Fluoroscopically guided, contrast-controlled bilateral L3, L4 AND L5 medial branch blocks with 0.5cc of 0.5% Marcaine. Following review of allergy and review of potential side effects and complications, including, but not necessarily limited to, infection, allergic reaction, local tissue breakdown, nerve injury, paralysis, stroke and possible , the patient indicated that the patient understood and agreed to proceed. An informed consent document was signed by the patient, witnessed by a nurse, and placed in the patient's chart. After review of previous anaesthesic history and IV conscious sedation the patient was deemed safe to proceed with today's procedure with IV conscious sedation as ASA class II designation. Safety time-out was performed to confirm patient ID, procedure to be performed and site of procedure. IV sedation was not administered by the RN after DO order, titrated to patient comfort during the course of the procedure while the patient remained responsive to all verbal commands In the prone position, following sterile prep and drape of the lumbar region, the right L3, L4 AND L5 anatomical location of the medial branch of the dorsal ramus was identified fluoroscopically. Subsequently an anesthetic skin wheal using 1% lidocaine solution was initiated at each of the anatomical spots. Subsequently then a 22-gauge 3.5-inch spinal needle was atraumatically introduced and advanced under fluoroscopic guidance at each of the corresponding sites at the right L3, L4 and L5 MB. After negative aspiration, 0.2cc of Isovue 200 was injected, confirming placement without vascular or intrathecal uptake. Subsequently then 0.5cc of 0.5% Marcaine solution was injected at each of the corresponding sites at the right L3, L4 and L5 medial branch locations. The identical procedure was replicated on the left. The patient tolerated the procedure well without signs or symptoms of complications. The patient tolerated the procedure well without signs or symptoms of complications prior to transfer to the recovery area continued monitoring without incident. Post-procedure, the patient was monitored initiating provocative activities to measure the amount of relief from block of the facetogenic pain. The patient reported a VAS of 7 prior to the procedure and a post-procedure VAS of 1. It has been a pleasure to assist in the diagnostic and therapeutic care of your patient. POST OP INSTRUCTIONS The patient was provided with a Pain Log to complete over the next several hours and subsequent days prior to the patient's follow up with the ordering physician. If the patient has medical secretary teacher relief to the solution applied, then they may be a candidate for medial branch rhizotomy. The patient is aware, was provided, once again, with a Pain Log and will follow up with the referring physician for review and clinical correlation
[2024-11-05 14:55] VITALS: BP 139/76; PULSE 68; RESP 17; O2SAT 98
== END 2024-11-05 14:57 | disposition home or self-care (01) ==
PROVIDERS: PCP Internal Medicine; Referring Provider Physical Medicine & Rehabilitation; Visit Provider Physical Medicine & Rehabilitation
DX: M47.816 Spondylosis without myelopathy or radiculopathy, lumbar region (principal)
CPT/HCPCS: 64493; 64494

== ENCOUNTER 2025-01-14 07:01 | Outpatient (CLI) | payer MEDICARE, SELFPAY ==
[2025-01-14 07:55] VITALS: BP 118/71; PULSE 68; RESP 16; TEMP 36.7; O2SAT 97
[2025-01-14 08:25] VITALS: BP 118/76; PULSE 67; RESP 16; O2SAT 98
[2025-01-14] MEDS: LIDOCAINE 1% 20 ML 5 ML INJ (08:38)
[2025-01-14] MEDS: iopamidoL 15 ML VIAL 3 ML INJ (08:38)
[2025-01-14] MEDS: LIDOCAINE 2% INJ MDV 20ML 5 ML INJ (08:38)
[2025-01-14 08:40] VITALS: BP 142/83; PULSE 61; RESP 16; O2SAT 100
--- NOTE | 2025-01-14 08:54 | P.PCN_ITS ---
Date/Time/Diagnoses Date of procedure: 01/14/25 Time of procedure: 08:54 Pre-procedure diagnosis: 1. FACET ARTHROPATHY Post-procedure diagnosis: same Procedure Notes Procedure: 1. BILATERAL L3, L4 AND L5 DIAGNOSTIC MB BLOCKS Indications: Jono is referred by Dr. Boone for treatment of Bilateral Axial LBP. Physician: Ky Briones Total Fluoroscopy time (seconds): 8 Total sedation minutes: 0 Complications: none Procedure in detail & Post-procedure care: DESCRIPTION OF PROCEDURE Fluoroscopically guided, contrast-controlled bilateral L3, L4 AND L5 medial branch blocks with 0.5cc of 2% Lidocaine. Following review of allergy and review of potential side effects and complications, including, but not necessarily limited to, infection, allergic reaction, local tissue breakdown, nerve injury, paralysis, stroke and possible , the patient indicated that the patient understood and agreed to proceed. An informed consent document was signed by the patient, witnessed by a nurse, and placed in the patient's chart. After review of previous anaesthesic history and IV conscious sedation the patient was deemed safe to proceed with today's procedure with IV conscious sedation as ASA class II designation. Safety time-out was performed to confirm patient ID, procedure to be performed and site of procedure. IV sedation was not administered by the RN after DO order, titrated to patient comfort during the course of the procedure while the patient remained responsive to all verbal commands In the prone position, following sterile prep and drape of the lumbar region, the right L3, L4 AND L5 anatomical location of the medial branch of the dorsal ramus was identified fluoroscopically. Subsequently an anesthetic skin wheal using 1% lidocaine solution was initiated at each of the anatomical spots. Subsequently then a 22-gauge 3.5-inch spinal needle was atraumatically introduced and advanced under fluoroscopic guidance at each of the corresponding sites at the right L3, L4 and L5 MB. After negative aspiration, 0.2cc of Isovue 200 was injected, confirming placement without vascular or intrathecal uptake. Subsequently then 0.5cc of 2% Lidocaine solution was injected at each of the co rresponding sites at the right L3, L4 and L5 medial branch locations. The identical procedure was replicated on the left. The patient tolerated the procedure well without signs or symptoms of complications. The patient tolerated the procedure well without signs or symptoms of complications prior to transfer to the recovery area continued monitoring without incident. Post-procedure, the patient was monitored initiating provocative activities to measure the amount of relief from block of the facetogenic pain. The patient reported a VAS of 7 prior to the procedure and a post-procedure VAS of 1. It has been a pleasure to assist in the diagnostic and therapeutic care of your patient. POST OP INSTRUCTIONS The patient was provided with a Pain Log to complete over the next several hours and subsequent days prior to the patient's follow up with the ordering physician. If the patient has ventilation worker relief to the solution applied, then they may be a candidate for medial branch rhizotomy. The patient is aware, was provided, once again, with a Pain Log and will follow up with the referring physician for review and clinical correlation
[2025-01-14 08:55] VITALS: BP 129/74; PULSE 68; RESP 16; O2SAT 98
== END 2025-01-14 09:05 | disposition home or self-care (01) ==
LOC: RAD 07:02
PROVIDERS: PCP Internal Medicine; Referring Provider Physical Medicine & Rehabilitation; Visit Provider Physical Medicine & Rehabilitation
DX: M47.816 Spondylosis without myelopathy or radiculopathy, lumbar region (principal)
CPT/HCPCS: 64493; 64494

== ENCOUNTER 2025-01-21 13:35 | Inpatient (IN) | payer MEDICARE, SELFPAY ==
[2025-01-21] VITALS (9 sets, daily range): BP systolic 107–156; BP diastolic 67–88; PULSE 82–94; RESP 17–23; TEMP 36.6–36.9; O2SAT 96–98; BMI 25.8; BMI 25.6
--- NOTE | 2025-01-21 13:53 | DI.RAD.S_ITS ---
PROCEDURE: XR CHEST 1V INDICATIONS: Possible stroke TECHNIQUE: One view of the chest was acquired. COMPARISON: None. FINDINGS: Surgical changes and devices: None. Lungs and pleura: Lungs are clear. No pleural effusions or pneumothorax. Mediastinum: Mediastinal contours appear normal. Heart size is normal. Bones and chest wall: No suspicious bony lesions. Overlying soft tissues appear unremarkable. IMPRESSION: No acute pulmonary process. Dictated by: Bibi Gaspar M.D. on 01/21/2025 at 14:28 Approved by: Bibi Gaspar M.D. on 01/21/2025 at 14:31
--- NOTE | 2025-01-21 13:53 | DI.CT.S_ITS ---
PROCEDURE: CT STROKE INDICATIONS: Positive BE-FAST, Stroke symptoms TECHNIQUE: Noncontrast 4.5 mm thick angled axial sections acquired from the foramen magnum to the vertex, with coronal reformats. For radiation dose reduction, the following was used: automated exposure control, adjustment of mA and/or kV according to patient size. COMPARISON: None. FINDINGS: Image quality: Diagnostic. CSF spaces: Basal cisterns are patent. No extra-axial fluid collections. The ventricles are symmetric in size and shape. Brain: No intracranial bleeds or mass effect. There is cerebral volume loss, with resultant ventricular and sulcal prominence. There are periventricular and deep white matter chronic small vessel ischemic changes. There is intracranial internal carotid artery atherosclerosis. Senescent basal ganglia calcifications. Skull and face: Calvarium and visualized facial bones appear intact, without suspicious lesions. Sinuses: Visualized sinuses and mastoids are clear. IMPRESSION: 1. No acute intracranial process. 2. Moderate atrophy and chronic microvascular ischemic changes. The above findings were discussed with Irene Motta, taking message for Dr. Adore Kessler on 01/21/2025 at 2:11 p.m, who was unavailable for immediate consultation. This study fulfills neurological imaging criteria for inclusion or exclusion of acute stroke therapies based on available published neurological guidelines. Dictated by: Bibi Gaspar M.D. on 01/21/2025 at 14:09 Approved by: Bibi Gaspar M.D. on 01/21/2025 at 14:13
--- NOTE | 2025-01-21 13:53 | DI.CT.S_ITS ---
PROCEDURE: CT ANGIO HEAD AND NECK INDICATIONS: stroke TECHNIQUE: After the administration of intravenous contrast, 1 mm thick sections acquired from the aortic arch through the [place] of [place]. 3-dimensional xzdzlsw-qqdvvnsgc-gxypetlioo (MIP) and/or volume rendering reformats were acquired of the central intracranial vasculature and neck separately. For radiation dose reduction, the following was used: automated exposure control, adjustment of mA and/or kV according to patient size. COMPARISON: [facility], CT, CT STROKE, 01/21/2025, 14:03. FINDINGS: Image quality: Diagnostic. BRAIN: See separately dictated CT head report of 01/21/2025. HEAD CT ANGIOGRAPHY: Anterior circulation: Intracranial internal carotid arteries are normal in size and flow. The flow within the paired anterior cerebral arteries is normal and symmetric. The flow within the middle cerebral arteries is normal and symmetric. The anterior communicating artery is seen. No aneurysms are seen. Posterior circulation: Left vertebral artery dominance. Visualized portions of the vertebral arteries demonstrate normal caliber, and join to form a normal appearing basilar artery. Flow within the posterior cerebral arteries is normal and symmetric. No aneurysms are seen. NECK CT ANGIOGRAPHY: Carotid system: The great vessels demonstrate a conventional anatomy as they arise from the aortic arch. The origins of the common carotid arteries appear patent. The common carotid arteries demonstrate normal caliber and courses. The bifurcation regions are both widely patent. The internal carotid arteries demonstrate normal calibers and courses. Posterior circulation: The origins of the vertebral arteries both appear widely patent. The more superior extracranial portions of both vertebral arteries also demonstrate normal courses and calibers. They join to form a normal appearing basilar artery. Soft tissues: Visualized neck soft tissues demonstrate no suspicious abnormalities. Heterogeneous thyroid gland with areas of low attenuation and calcification. No priors. Bones: No suspicious bony lesions. Visualized cervical spine appears normally aligned. IMPRESSION: No significant intracranial arterial abnormality is seen. No significant abnormality is seen within the arteries of the neck. Enlarged heterogeneous thyroid. Thyroid ultrasound is recommended on a nonemergent basis for further evaluation. Any quantitative measurements of stenosis were performed using NASCET criteria. Dictated by: Bibi Gaspar M.D. on 01/21/2025 at 14:38 Approved by: Bibi Gaspar M.D. on 01/21/2025 at 14:41
--- NOTE | 2025-01-21 13:57 | PC.NURSE ---
No drift, antaxia, or numbness, patient is barely able to move left hand/wrist. 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
--- NOTE | 2025-01-21 14:04 | PC.NURSE ---
[id number] Kessler, code stroke initiated.
[2025-01-21 14:12] LABS: Add Manual Diff / Slide Review NO; Basophils Absolute Auto 0 /uL (0-100); Basophils Percent Auto 0.3 % (0-2); Eosinophils Absolute Auto 0 /uL (0-450); Eosinophils Percent Auto 0.2 % (2-4); Lymphocytes Absolute Auto 1100 /uL (1100-4500); Lymphocytes Percent Auto 9.5 % (25-40); Mean Corpuscular HGB Conc 34.8 % (30-36); Mean Corpuscular Hemoglobin 31.9 PG (26-34); Mean Corpuscular Volume 91.6 fL (80-100); Monocytes Absolute Auto 1000 /uL (0-900); Monocytes Percent Auto 8.6 % (3-14); Neutrophils Absolute Auto 9800 /uL (1500-7000); Neutrophils Percent Auto 81.4 % (50-75); Platelet Count 186 X10^3/uL (150-400); Red Cell Distribution Width 13.6 % (11.6-14.8)
[2025-01-21 14:22] LABS: Alanine Aminotransferase 26 IU/L (<50); Albumin 4.7 g/dL (3.5-5.0); Alkaline Phosphatase 73 U/L (38-126); Aspartate Aminotransferase 33 IU/L (17-59); BUN Creatinine Ratio 21.8 (6-22); Bilirubin Total 1.6 mg/dL (0.2-1.3); Blood Urea Nitrogen 22 mg/dL (9-20); Calcium 9.5 mg/dL (8.4-10.2); Carbon Dioxide 26 mmol/L (22-32); Chloride 105 mmol/L (98-107); Creatine Kinase 127 U/L (55-170); Estimated Glomerular Filt Rate > 60 mL/min (>60); Globulin 2.4 g/dL (1.7-4.1); Glucose 105 mg/dL (70-99); HEMOLYSIS < 15 (0-50); Potassium 4.2 mmol/L (3.4-5.1); Sodium 139 mmol/L (137-145); Total Protein 7.1 g/dL (6.3-8.2)
[2025-01-21 14:23] LABS: Prothrombin Time 11.6 SECONDS (9.4-12.5)
--- NOTE | 2025-01-21 14:23 | EKG_ITS ---
[address] [address] [address] [address] Test Date: 2025-01-21 Pat Name: Jono Thornton Department: [facility] Room: Gender: Male Batch Tester: MOSHE : 1950 Requested By: Order Number: [id number] Reading MD: Ramsey Pearl Measurements Intervals [place] Rate: 89 P: 3 W[place]: 238 QRS: 4 QRSD: 74 T: 16 QT: 352 QTc: 428 Interpretive Statements Sinus rhythm with 1st degree AV block Electronically Signed On 01-21-2025 17:06:46 PDT by Ramsey Pearl
[2025-01-21 14:26] LABS: PTT Partial Thromboplastin Tim 27 SECONDS (25.1-36.5)
[2025-01-21 14:34] LABS: Troponin I 0.013 ng/mL (0.01-0.034)
--- NOTE | 2025-01-21 17:10 | DI.MRI.S_ITS ---
PROCEDURE: MR HEAD/BRAIN WO CON INDICATIONS: weekness TECHNIQUE: Non-contrast axial T1 spin echo, axial T2 fast spin echo, sagittal and axial FLAIR, coronal T2 fast spin echo, axial gradient echo, axial diffusion and ADC through the brain. COMPARISON: [facility], CT, CT STROKE, 01/21/2025, 14:03. FINDINGS: Image quality: Excellent. CSF spaces: Ventricles appear symmetric in size and shape. Basal cisterns are patent. No extra-axial fluid collections. Brain: Small right frontal extra-axial mass measuring 1.8 x 0.8 centimeters (7/21), likely a meningioma. FLAIR hyperintense signal around the right central sulcus (7/22) without associated restricted diffusion. Possible moderate right dural thickening (7/16) most notable posteriorly. No intracranial bleeds. There is cerebral volume loss for age. There are periventricular and deep white matter chronic small vessel ischemic changes. Brainstem appears normal. Diffusion-weighted images show no acute infarct. No chronic ischemic insults. Normal intravascular flow voids are present. Skull and face: Calvarial bone marrow is normal in signal. Bilateral lens replacements. Otherwise, the orbits are unremarkable. Sinuses: Sinuses and mastoids are clear. IMPRESSION: No definite acute or subacute infarct. Abnormal FLAIR hyperintense signal around the right central sulcus near the vertex of uncertain etiology, consider infectious or inflammatory etiologies. Neoplasm is not entirely excluded. Recommend MRI brain with contrast. Possible mild right dural thickening. Likely small right frontal meningioma measuring 1.8 x 0.8 centimeters. Dictated by: Rahul Fofana M.D. on 01/21/2025 at 19:00 Approved by: Rahul Fofana M.D. on 01/21/2025 at 19:06
--- NOTE | 2025-01-21 17:13 | DI.ECHO.S_ITS ---
[place] [facility] : : [address] : : [place] : : [address] : : Phone: [phone] Echocardiogram Report + + :Name: GONZALO MCKEON Study Date: 01/22/2025 Height: 70 in : :Hospital ReadingLocation: Weight: 180 lb : : Gender: Male BSA: 2.0 m2 : :: 1950 Age: 74 yrs BP: 119/75 mmHg: :Reason For Study: STROKE : :Ordering Physician: NEHEMIAS, : :CRISTIAN Performed By: Cristian Pedraza : :Referring: CRISTIAN DEL CID : + + Interpretation Summary The left ventricle is normal in size. Left ventricular systolic function appears normal without focal wall motion abnormalities. The ejection fraction is estimated to be 55-60%. Diastolic parameters suggest a relaxation abnormality of the left ventricle, consistent with probable normal filling pressures. The right ventricle grossly appears normal in size with probable normal systolic function. Pulmonary artery pressures cannot be estimated because of the lack of a measurable TR jet velocity but the IVC suggests a CVP of around 3 mmHg. The left atrium grossly appears normal in size. The aortic root is normal size. No gross valvular abnormalities. Procedure: A two-dimensional transthoracic echocardiogram with color flow and Doppler was performed. The study quality was technically difficult. There is no prior echocardiogram noted for this patient. The patient was in normal sinus rhythm during the exam. Left Ventricle: The left ventricle is normal in size. There is normal left ventricular wall thickness. There is no ventricular septal defect visualized. Left ventricular systolic function appears normal without focal wall motion abnormalities. The ejection fraction is estimated to be 55-60%. Diastolic parameters suggest a relaxation abnormality of the left ventricle, consistent with probable normal filling pressures. Right Ventricle: The right ventricle grossly appears normal in size with probable normal systolic function. Atria: The left atrium grossly appears normal in size. The right atrium grossly appears normal in size. There is no Doppler evidence for an interatrial shunt. Mitral Valve: The mitral valve leaflets appear normal. There is no evidence of stenosis, fluttering, or prolapse. There is no mitral regurgitation noted. Aortic Valve: The aortic valve is trileaflet. The aortic valve is mildly calcified. The aortic valve opens well. No aortic regurgitation is present. Tricuspid Valve: The tricuspid valve is not well visualized, but is grossly normal. No tricuspid regurgitation. Pulmonary artery pressures cannot be estimated because of the lack of a measurable TR jet velocity but the IVC suggests a CVP of around 3 mmHg. Pulmonic Valve: The pulmonic valve is not well visualized. Great Vessels: The aortic root is normal size. The dimensions of the ascending aorta are normal. The pulmonary is not well visualized. The IVC is of normal diameter and collapses greater than 50% with a sniff. This suggests a low right atrial pressure of 3 mm Hg. Pericardium/ Pleura There is no pericardial effusion. MMode/2D Measurements & Calculations LVIDd: 4.2 cm LVOT diam: 2.1 cm LVIDs: 2.9 cm Ao root diam: 3.6 cm FS: 32.1 % asc Aorta Diam: 3.3 cm EPSS: 1.3 cm IVSd: 0.96 cm LVPWd: 1.1 cm LV zaragoza. diameter/BSA (cm/m^2): 2.1 LV sys. diameter/BSA (cm/m^2): 1.4 LA A4 area: 20.3 cm2 RA long axis: 4.4 cm LA length (vol): 6.2 cm RA area: 12.0 cm2 RA vol: 27.7 ml RA : 13.9 ml/m2 IVC diam: 1.4 cm TAPSE: 2.1 cm Doppler Measurements & Calculations Ao V2 max: 101.4 cm/sec LVOT Max Bossman: 99.5 cm/sec Ao V2 mean: 72.9 cm/sec LV V1 max P.0 mmHg Ao max P.1 mmHg LV V1 VTI: 19.9 cm Ao mean P.3 mmHg MASOOD(I,D): 3.4 cm2 Ao V2 VTI: 21.1 cm MASOOD(V,D): 3.5 cm2 sev ratio: 0.94 MASOOD indexed to BSA (cm^2/m^2): 1.7 MV E max bossman: 52.7 cm/sec SV(LVOT): 71.9 ml MV A max bossman: 65.9 cm/sec MV E/A: 0.80 Med Peak E' Bossman: 5.8 cm/sec E/E' med: 9.2 Lat Peak E' Bossman: 10.0 cm/sec E/E' lat: 5.3 E/e' average: 7.2 MV dec time: 0.21 sec Reading Physician:02:35 PM
--- NOTE | 2025-01-21 17:16 | P.HP_ITS ---
History of Present Illness History of Present Illness Date Patient Seen: 01/21/25 Time Patient Seen: 17:31 Chief complaint: Possible stroke, sent by Dr. Boone Narrative: 74-year-old male with a past medical history of depression and low back pain presents to the emergency department with left hand weakness patient states his symptoms started this morning. Where all of a sudden his left arm had twitches or muscle spasms. And involuntary movements this lasted for a number of minutes. Afterwards he felt like his arm was quite weak. He initially thought he was just having a Charley horse or muscle spasm. His arm afterwards he was unable to move. Can move it lifted above his head or bend his elbow or move his hands or fingers. They became concerned enough that they called the clinic and he was then sent to the emergency department. In the emergency department patient had laboratory testing done which showed normal white blood cell count normal hemoglobin hematocrit and normal electrolyte and kidney function. Because of the weakness in his arm patient had a CT scan of his head which showed no intracranial pathology. CT angiogram of head and neck which showed no arterial abnormality and head or neck. 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 Patient has not previously had stroke-like symptoms. No history of heart disease. 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 Briones's and recently had an MRI of his spine. He has no known history of hypertension does have a history of hyperlipidemia. [facility] Medical History (Updated 01/21/25 @ 17:35 by Cristian Bañuelos MD) Dementia Lumbar radiculopathy Lumbar facet arthropathy Lumbar degenerative disc disease Lumbar spondylosis Chronic low back pain Chronic constipation Orthostatic hypotension Depression Vision disorder Hearing deficit Mild single current episode of major depressive disorder (08/06/16) Hyperlipidemia (08/06/16) Surgical History Anesthesia History of foot surgery History of surgery Family History Father Cancer Grandmother No problems noted. Mother No problems noted. Grandfather No problems noted. 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: [employer] leisure activities: exercise and other Smoking Status: Current every day smoker Tobacco: How many years used: 20 Smokeless tobacco user: other quit status: has quit before second hand exposure: No alcohol intake: never substance use type: marijuana Meds Home Medications and Allergies Home Medications Medication Instructions Recorded Confirmed Type mirtazapine 15 mg tablet 15 mg PO BEDTIME #90 tabs 12/10/23 01/21/25 Rx acetaminophen 500 mg tablet 500 mg PO Q6H 10/07/24 01/21/25 History (Tylenol Extra Strength) meloxicam 15 mg tablet 15 mg PO DAILY #90 tabs 01/06/25 01/21/25 Rx Allergies Allergy/AdvReac Type Severity Reaction Status Date / Time Sulfa (Sulfonamide Allergy Verified 01/21/25 13:42 Antibiotics) Exam Vital Signs (past 8 hours): - 01/21/25 13:40 01/21/25 15:38 Temperature 98 F Pulse Rate 94 H 89 Respiratory Rate 17 22 Blood Pressure 107/68 Pulse Oximetry 96 98 Oxygen Delivery Method Room Air Oxygen Delivery Method Room Air Narrative Exam Narrative: Gen.: [Alert and oriented x3 no apparent distress.] HEENT: Pupils equal round and reactive oral mucosa is moist neck is supple facial muscle movement is symmetric Cardio: [S1-S2 regular rate and rhythm no murmurs appreciated.] Respiratory: [Lungs are clear to auscultation no wheezes or crackles normal respiratory effort.] Abdomen: [Soft nontender no rebound or guarding no liver spleen enlargement no appreciable hernias] Extremities: Patient has full range of motion of upper and lower extremities. Patient has weakness on his left upper extremity both on flexion and extension of all muscle areas tested. Patient has decreased fabric separator operator strength of left hand versus right hand. Neurologic: Patient demonstrates intact cranial nerves with left upper extremity weakness and decreased fabric separator operator strength Objective Labs 01/21/25 13:58 01/21/25 13:58 Labs: Laboratory Results - last 24 hr 01/21/25 13:58 WBC 12.0 H RBC 4.70 Hgb 15.0 Hct 43.0 MCV 91.6 MCH 31.9 MCHC 34.8 RDW 13.6 Plt Count 186 Neut % (Auto) 81.4 H Lymph % (Auto) 9.5 L [place] % (Auto) 8.6 Eos % (Auto) 0.2 L Baso % (Auto) 0.3 Neut # (Auto) 9800 H Lymph # (Auto) 1100 [place] # (Auto) 1000 H Eos # (Auto) 0 Baso # (Auto) 0 PT 11.6 INR 1.0 APTT 27 Sodium 139 Potassium 4.2 Chloride 105 Carbon Dioxide 26 BUN 22 H Creatinine 1.01 Estimated GFR > 60 BUN/Creatinine Ratio 21.8 Glucose 105 H Calcium 9.5 Magnesium 2.0 Total Bilirubin 1.6 H AST 33 ALT 26 Alkaline Phosphatase 73 Total Creatine Kinase 127 Troponin I 0.013 Total Protein 7.1 Albumin 4.7 Globulin 2.4 Albumin/Globulin Ratio 2.0 Assessment & Plan Assessment and plan (1) Left arm weakness: Status: Acute Plan Left arm weakness patient has fairly profound left arm weakness and 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 Concerning for cerebrovascular injury either TIA or CVA. Patient has normal CT head and CT angiogram of head and neck. Because of his concerning symptoms he is outside of the window for tPA greater than 5 hours. Consult with tele stroke recommended inpatient observation and further workup with MRI. Patient will be loaded with Plavix 300 mg today 75 mg afterwards 325 mg aspirin today and 81 mg after. Patient will have an MRI be placed on telemetry monitoring have an echocardiogram to rule out embolic sources his EKG in the emergency room shows that he is not in atrial fibrillation. He will have DVT prophylaxis with Lovenox and SCDs placed. He will have a swallow evaluation and have PT and OT evaluation vital signs per protocol and have neurological assessments with the NIH stroke scale as protocol. We will go ahead and place him on medium dose statin of Lipitor 20 mg a day. Will check lipid panel. He does not appear to be diabetic and has normal kidney function. Depression. Patient with a history of depression. No concerning symptoms now he will be started on his mirtazapine 15 mg a day. Hyperlipidemia. Patient will be placed on medium dose statin of 20 mg a day and move his current strokes concerning symptoms. DVT prophylaxis with Lovenox 40 mg and SCDs Disposition and plan. Patient will be admitted for observation status as he will continued be need to worked up for the possibility of stroke with MRI. Time-Based Coding :: [TOTAL MINUTES] spent with patient and on the chart (including review of chart, obtaining history, exam, reviewing outside data, placing orders, documenting exam and treatment plan, and counseling patient) on [DATE]. PROFEE Composing Room Supervisor Document charge(s): Yes Charge Codes Initial inpatient/observation care: 36822
[2025-01-21] MEDS: CLOPIDOGREL 75 MG TABLET 300 MG PO (18:36)
[2025-01-21 19:00] LABS: Cholesterol 230 mg/dL (140-199); HDL Cholesterol 66 mg/dL (40-60); LDL Cholesterol Calculated 149 mg/dL (<100); Triglycerides 77 mg/dL (35-150)
--- NOTE | 2025-01-21 19:05 | ED_ITS ---
HPI - Weakness General Chief complaint: Weakness Stated complaint: Possible stroke, sent by Dr. Boone Time Seen by Provider: 01/21/25 16:04 Source: patient Mode of arrival: Ambulatory History of Present Illness HPI Narrative: This 74-year-old male without previous history of stroke presents to the emergency room in the company of his with a history of acute left arm weakness beginning approximately 8:00 a.m. this morning when he noticed that he was having spastic movement of the upper extremity. 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 He denies any weakness in his remaining extremities. He had no facial droop or slurred speech or lack of sensation in his face. He had no visual change or headache. Past medical history reveals hyperlipidemia and low back problems. He has no family history of stroke purportedly. Related Data Home Medications Medication Instructions Recorded Confirmed acetaminophen 500 mg tablet 500 mg PO Q6H 10/07/24 01/21/25 (Tylenol Extra Strength) Previous Rx's Medication Instructions Recorded mirtazapine 15 mg tablet 15 mg PO BEDTIME #90 tabs 12/10/23 meloxicam 15 mg tablet 15 mg PO DAILY #90 tabs 01/06/25 Allergies Allergy/AdvReac Type Severity Reaction Status Date / Time Sulfa (Sulfonamide Allergy Verified 01/21/25 13:42 Antibiotics) Review of Systems Constitutional Comments: Malaise secondary to acute onset of left arm weakness at 8:00 a.m. this morning involving left hand weakness as well. Eyes Comments: Negative ENT Comments: Negative Cardiovascular Comments: Negative Respiratory Comments: Negative Gastrointestinal Comments: Negative Genitourinary Comments: Negative Musculoskeletal Comments: Acute onset of a spastic movement of left upper extremity at 8:00 a.m. this morning with subsequent left hand weakness and inability to buggy ladle tender. Neurologic Comments: No headache. No facial droop. No slurred speech. Patient had acute onset of left upper extremity weakness approximately 8:00 a.m. this morning. Psychiatric Comments: Negative Endocrine Comments: Negative Hematologic/Lymphatic Comments: Negative Patient History Medical History (Updated 01/21/25 @ 18:35 by Adore Kessler MD) Dementia Lumbar radiculopathy Lumbar facet arthropathy Lumbar degenerative disc disease Lumbar spondylosis Chronic low back pain Chronic constipation Orthostatic hypotension Depression Vision disorder Hearing deficit Mild single current episode of major depressive disorder (08/06/16) Hyperlipidemia (08/06/16) Surgical History Anesthesia History of foot surgery History of surgery Family History Father Cancer Grandmother No problems noted. Mother No problems noted. Grandfather No problems noted. 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 leisure activities: exercise and other Tobacco: How many years used: 20 Smokeless tobacco user: other quit status: has quit before second hand exposure: No alcohol intake: never substance use type: marijuana Smoking Status: Current every day smoker tobacco type: cigarettes alcohol intake frequency: holidays/special occasions only Exam Initial Vital Signs Initial Vital Signs: Vital Signs Temperature 98 F 01/21/25 13:40 Pulse Rate 94 H 01/21/25 13:40 Respiratory Rate 17 01/21/25 13:40 Blood Pressure 107/68 01/21/25 13:40 Pulse Oximetry 96 01/21/25 13:40 Oxygen Delivery Method Room Air 01/21/25 13:40 Const General: cooperative and healthy appearing [facility] Head: normal to inspection [facility] Other: Patient can open and close eyes on command. He has no facial droop. No paresthesias face. Normal smile no slurred speech. Eyes Other: PERRL. EOMs are full. Neck Neck: normal visual inspection and full ROM Other: No stridor. Chest Chest: normal inspection of the chest Resp Effort & Inspection: normal respiratory effort Cardio Palpation: normal PMI Rate: regular rate Rhythm: regular rhythm GI Inspection: normal to inspection Palpation: soft Auscultation: normal bowel sounds Other: No tenderness Neuro Other: Oriented x3. Cranial nerves 2-7 appear grossly intact. Strength-there is obvious left upper extremity weakness as hers positive drift in the extremity and also markedly weak left buggy ladle tender as compared to the right intact neurovascular status distally in the left upper extremity. Remaining extremities revealed no unilateral weakness or paresthesias. Stroke scale is approximately 1-2 Course Course Course Narrative: This 74-year-old male who appears to have had an acute stroke focal neurologic findings in his left upper extremity. Since the symptoms occurred it 8:00 a.m. this morning and beyond he appears well past the thrombolytics threshold. Lab was done and revealed slightly elevated WBC slightly elevated BUN and glucose. Coags were normal. CT a head neck were negative for large vessel disease or any obvious large stroke. Chest x-ray was negative. EKG revealed normal normal sinus rhythm with first-degree block rate was 90. Patient was interviewed by tele neuro and the indeed felt patient had a stroke but they felt it was out of range for thrombolytics. They did recommend that he was admitted and put on 324 mg of aspirin and 300 mg of Plavix today and then tomorrow start aspirin 81 mg daily and then Plavix 75 mg daily. They did not feel he needed to be admitted to a hospital with neurologic capability. They did feel that he should have an MRI of the brain done. Patient was admitted to Dr. Bañuelos to Medicine Orders Ordered: ED Orders 01/21/25 13:[address] angio head and neck Stat XR chest 1V Stat Urine Drug Screen, Rapid Stat EKG-12 Lead Stat 01/21/25 13:58 Complete Blood Count AUTO DIFF Stat Comprehensive Metabolic Panel Stat Magnesium Stat PTT Partial Thromboplastin Rony Stat Prothrombin Time INR Stat Troponin & CK Cardiac Panel Stat Acetaminophen (Acetaminophen 325 Mg Tablet) 650 mg PO Q6H PRN PRN Reason: Fever/Mild Pain (1-3) Aspirin (Aspirin Ec 325 Mg Tablet) 325 mg PO DAILY MART Atorvastatin Calcium (Atorvastatin 20 Mg Tablet) 20 mg PO BEDTIME MART Clopidogrel Bisulfate (Clopidogrel 75 Mg Tablet) 75 mg PO DAILY MART Enoxaparin Sodium (Enoxaparin 40 Mg/0.4 Ml Syringe) 40 mg SUBCUT DAILY MART Mirtazapine (Mirtazapine 15 Mg Tablet) 15 mg PO BEDTIME MART Naloxone HCl (Naloxone 0.4 Mg/Ml Vial) 0.2 mg IV Q2MIN PRN PRN Reason: Opiate Reversal Ondansetron HCl (Ondansetron 4 Mg/2 Ml Inj) 4 mg IV NOW PRN PRN Reason: Nausea And Vomiting Ondansetron HCl (Ondansetron 4 Mg Odt) 4 mg SL NOW PRN PRN Reason: Nausea And Vomiting Discontinued Medications Clopidogrel Bisulfate (Clopidogrel 75 Mg Tablet) 300 mg PO NOW ONE Stop: 01/21/25 17:08 Last Admin: 01/21/25 18:36 Dose: 300 mg Documented By: BT Vital Signs Vital signs: Vital Signs - 8 hr 01/21/25 13:40 01/21/25 15:38 01/21/25 15:45 Temperature 98 F Pulse Rate 94 H 89 90 Respiratory Rate 17 22 21 Blood Pressure 107/68 Pulse Oximetry 96 98 96 Oxygen Delivery Method Room Air 01/21/25 15:45 01/21/25 16:00 01/21/25 16:00 Temperature Pulse Rate 90 Respiratory Rate 21 Blood Pressure 115/67 116/69 Pulse Oximetry 96 Oxygen Delivery Method 01/21/25 16:30 01/21/25 16:30 01/21/25 17:00 Temperature Pulse Rate 89 90 Respiratory Rate 23 Blood Pressure 109/71 Pulse Oximetry 98 97 Oxygen Delivery Method 01/21/25 17:02 01/21/25 17:02 Temperature Pulse Rate 89 Respiratory Rate 18 Blood Pressure 156/80 H Pulse Oximetry 97 Oxygen Delivery Method MDM - Weakness Medical Records Medical records narrative: Differential included stroke versus cervical radiculopathy versus myopathy versus focal seizure it was concluded after workup that the patient had an acute CVA with focal neurologic symptoms involving his left upper extremity. Lab Data 01/21/25 13:58 01/21/25 13:58 Labs: Lab Results 01/21/25 Range/Units 13:58 WBC 12.0 H (4.5-11.0) X10^3/uL RBC 4.70 (4.5-5.9) X10^6/uL Hgb 15.0 (13.5-17.5) g/dL Hct 43.0 (41-53) % MCV 91.6 (80-100) fL MCH 31.9 (26-34) PG MCHC 34.8 (30-36) % RDW 13.6 (11.6-14.8) % Plt Count 186 (150-400) X10^3/uL Neut % (Auto) 81.4 H (50-75) % Lymph % (Auto) 9.5 L (25-40) % [place] % (Auto) 8.6 (3-14) % Eos % (Auto) 0.2 L (2-4) % Baso % (Auto) 0.3 (0-2) % Neut # (Auto) 9800 H (6749-9403) /uL Lymph # (Auto) 1100 (9517-3334) /uL [place] # (Auto) 1000 H (0-900) /uL Eos # (Auto) 0 (0-450) /uL Baso # (Auto) 0 (0-100) /uL PT 11.6 (9.4-12.5) SECONDS INR 1.0 (0.9-1.3) APTT 27 (25.1-36.5) SECONDS Sodium 139 (137-145) mmol/L Potassium 4.2 (3.4-5.1) mmol/L Chloride 105 (98-107) mmol/L Carbon Dioxide 26 (22-32) mmol/L BUN 22 H (9-20) mg/dL Creatinine 1.01 (0.66-1.25) mg/dL Estimated GFR > 60 (>60) mL/min BUN/Creatinine Ratio 21.8 (6-22) Glucose 105 H (70-99) mg/dL Hemoglobin A1c 5.0 (4.0-6.0) % Calcium 9.5 (8.4-10.2) mg/dL Magnesium 2.0 (1.6-2.3) mg/dL Total Bilirubin 1.6 H (0.2-1.3) mg/dL AST 33 (17-59) IU/L ALT 26 (<50) IU/L Alkaline Phosphatase 73 (38-126) U/L Total Creatine Kinase 127 (55-170) U/L Troponin I 0.013 (0.01-0.034) ng/mL Total Protein 7.1 (6.3-8.2) g/dL Albumin 4.7 (3.5-5.0) g/dL Globulin 2.4 (1.7-4.1) g/dL Albumin/Globulin Ratio 2.0 (1.0-2.8) Triglycerides 77 (35-150) mg/dL Cholesterol 230 H (140-199) mg/dL LDL Cholesterol, Calc 149 H (<100) mg/dL HDL Cholesterol 66 H (40-60) mg/dL Discharge Plan Departure Patient Disposition: Admitted As Inpatient Clinical Impression: Acute CVA (cerebrovascular accident), Left arm weakness Admit Date/Time: 01/21/25 17:02 Admit Provider: Cristian Bañuelos
[2025-01-21 20:40] LABS: Ur Creatinine Normal (Normal); Ur Specific Gravity Normal (Normal); Urine Amphetamines Negative (Negative); Urine Barbiturates Negative (Negative); Urine Benzodiazepines Negative (Negative); Urine Cocaine Negative (Negative); Urine MDMA Negative (Negative); Urine Methadone Negative (Negative); Urine Opiates Negative (Negative); Urine Oxycodone Negative (Negative); Urine Phencyclidine Negative (Negative); Urine THC Negative (Negative); Urine Tricyclic Antidepressant Negative (Negative); Urine pH Normal (Normal)
[2025-01-21] MEDS: ATORVASTATIN 20 MG TABLET PO (21:28)
[2025-01-21] MEDS: MIRTAZAPINE 15 MG TABLET PO (21:28)
[2025-01-22] VITALS (7 sets, daily range): BP systolic 89–133; BP diastolic 54–89; PULSE 64–81; RESP 16–20; TEMP 36.3–37.2; O2SAT 94–98
[2025-01-22] MEDS: LORazepam 2 MG/ML INJ 0.5 MG IV (07:29)
--- NOTE | 2025-01-22 07:29 | DI.MRI.S_ITS ---
PROCEDURE: MR HEAD/BRAIN W CON INDICATIONS: abnl non contrast MRI.. TECHNIQUE: After the administration of contrast, axial and coronal and sagittal VIBE with fat saturation through the brain. COMPARISON: [facility], CT, CT STROKE, 01/21/2025, 14:03. [facility], MR, MR HEAD/BRAIN WO CON, 01/21/2025, 17:54. FINDINGS: Image quality: Excellent. CSF spaces: Ventricles are normal in size and shape. Basal cisterns are patent. No extra-axial fluid collections. Brain: Area of abnormal signal in the right frontoparietal region adjacent to the central sulcus demonstrates no significant postcontrast enhancement. Right frontal extra-axial lesion demonstrates hypointense signal without definite contrast enhancement, possibly related to susceptibility artifact. No abnormal intra-axial enhancement is seen. Skull and face: No abnormal enhancement in the calvarium or orbits. Sinuses: Sinuses and mastoids are clear. IMPRESSION: 1. No significant postcontrast enhancement is seen in the region of the previously seen right frontoparietal signal abnormality adjacent to the central sulcus. Low-grade glioma can have this appearance although infections or inflammatory process is not entirely excluded. 2. Previously seen suspected small right frontal meningioma does not demonstrate significant postcontrast enhancement, although contrast uptake could be obscured by susceptibility artifact. Approved by: Lawrence Guzman M.D. on 01/22/2025 at 11:32
--- NOTE | 2025-01-22 07:31 | P.PN_ITS ---
Subjective Subjective Date Patient Seen: 01/22/25 Time Patient Seen: 07:32 Interval history: 74-year-old male well known to me with limited medical history including depression and hyperlipidemia, and chronic back issues status post fairly recent L3-L5 medial branch blocks in the spine for pain relief. He is admitted with left hand weakness. [place] to possibly be having an acute CVA. Story is quite atypical however as noted Patient was admitted after negative workup in the ER including CT angiography of the head and neck and CT scan of the head. MRI of the head was performed which shows a small frontal meningioma and some sort of increased signal near the right central sulcus near the vertex. This was a noncontrast MRI and recommendation is to repeat with contrast Since then patient had a witnessed tonic-clonic seizure this morning. Seizure was apparently mostly left-sided and spontaneously stopped he was also given a dose of Ativan after cessation of the seizure. Discussing it with the patient it appears he had a similar event that is set this all off yesterday morning. He described his arm being uncontrolled so he was somewhat aware of what he was going on yesterday and also this morning. Then he had the weakness in his hand and arm which prompted us to suggest he come to the ER which resulted in hospitalization Exam Vital Signs (past 8 hours): - 01/22/25 00:00 01/22/25 04:00 Temperature 98.2 F 97.6 F Pulse Rate 75 64 Respiratory Rate 16 Blood Pressure 129/74 133/89 Pulse Oximetry 97 97 Oxygen Flow Rate 0 0 Oxygen Delivery Method Room Air Oxygen Flow Rate 0 Narrative Exam Narrative: Elderly male lying in hospital bed with somewhat slurred speech immediately obvious which he was reported prior to the lorazepam being given this morning as part of his workup yesterday Neurologically moves all 4 extremities although severe difficulty with left hand. Unable to move fingers and thumb at all wrist is in some degree of flexion with tiny bit of extension possible. Movement at the elbow and shoulder appears to be normal. Right side hand arm fingers etcetera all normal. No cranial nerve defects that I can belt picker on Objective Labs 01/21/25 13:58 01/21/25 13:58 Labs: Laboratory Results - last 24 hr 01/21/25 01/21/25 13:58 20:20 WBC 12.0 H RBC 4.70 Hgb 15.0 Hct 43.0 MCV 91.6 MCH 31.9 MCHC 34.8 RDW 13.6 Plt Count 186 Neut % (Auto) 81.4 H Lymph % (Auto) 9.5 L [place] % (Auto) 8.6 Eos % (Auto) 0.2 L Baso % (Auto) 0.3 Neut # (Auto) 9800 H Lymph # (Auto) 1100 [place] # (Auto) 1000 H Eos # (Auto) 0 Baso # (Auto) 0 PT 11.6 INR 1.0 APTT 27 Sodium 139 Potassium 4.2 Chloride 105 Carbon Dioxide 26 BUN 22 H Creatinine 1.01 Estimated GFR > 60 BUN/Creatinine Ratio 21.8 Glucose 105 H Hemoglobin A1c 5.0 Calcium 9.5 Magnesium 2.0 Total Bilirubin 1.6 H AST 33 ALT 26 Alkaline Phosphatase 73 Total Creatine Kinase 127 Troponin I 0.013 Total Protein 7.1 Albumin 4.7 Globulin 2.4 Albumin/Globulin Ratio 2.0 Triglycerides 77 Cholesterol 230 H LDL Cholesterol, Calc 149 H HDL Cholesterol 66 H U Opiates 300ng/mL cut Negative Ur Oxycodone Screen Negative Urine Methadone Screen Negative Ur Barbiturates Screen Negative U Tricyclic Antidepress Negative Ur Phencyclidine Scrn Negative Ur Amphetamines Screen Negative U Methamphetamines Scrn Negative Ur MDMA Scrn (Ecstasy) Negative U Benzodiazepines Scrn Negative Urine Cocaine Screen Negative U Marijuana (THC) Screen Negative Urine pH Normal Urine Specific [place] Normal Ur Creatinine Normal [facility] Medical History (Updated 01/21/25 @ 18:35 by Adore Kessler MD) Dementia Lumbar radiculopathy Lumbar facet arthropathy Lumbar degenerative disc disease Lumbar spondylosis Chronic low back pain Chronic constipation Orthostatic hypotension Depression Vision disorder Hearing deficit Mild single current episode of major depressive disorder (08/06/16) Hyperlipidemia (08/06/16) Surgical History Anesthesia History of foot surgery History of surgery Family History Father Cancer Grandmother No problems noted. Mother No problems noted. Grandfather No problems noted. 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 Patient had initial seizure sounds like yesterday morning then had persistent right hand and wrist weakness on the left side. Repeat seizure this morning. CT angiography head and neck normal MRI demonstrates this right vertex central sulcus abnormality that will need follow-up with contrast enhanced MRI. At the moment however given his seizure this morning I think least a single dose of IV dexamethasone given the potential inflammatory change seen makes sense. 2. Seizure-patient will be loaded with Keppra and continue with oral Keppra while hospitalized. Unfortunately EEG is not available at this institution. Consider transfer to tertiary care center where Neurology and EEG are available. 3. Left hand weakness-patient reports left hand is weaker again after his event this morning than it was prior. Seem like maybe it was slightly improving. Perhaps that is more of a postictal weakness than anything else. Will continue treat for seizure disorder and try to determine etiology of seizures for now 4. Depression-continue usual meds Time-Based Coding :: [TOTAL MINUTES] spent with patient and on the chart (including review of chart, obtaining history, exam, reviewing outside data, placing orders, documenting exam and treatment plan, and counseling patient) on [DATE]. Quality VTE Deep Vein Thrombosis/Pulmonary Embolism Present on Admission: No IH PROFEE Surveillance Agent Document charge(s): Yes Charge Codes Subsequent inpatient/observation care: [id number]
--- NOTE | 2025-01-22 07:56 | PC.NURSE ---
@ 0715 I went in to Pt room to assist Pt to bathroom and Pt was stable I did assessment (see chart). while I was conducting bedside report in another room @ 0725 I was alerted that Pt was having possible seizure. Dr sampson was there and Pt upper body and left arm were shaking. Pt was kept safe. Episode lasted about a minute. Dr sampson ordered 0.5 mg IV ativan and that was given (see MAR). Dr Bañuelos was alerted on phone, by nurse Emma Avelar. New orders were given and will be giving IV Keppra when arrives from Pharmacy. Pt is resting and VSS.
[2025-01-22] MEDS: levETIRAcetam 1,000 MG in SODIUM CHLORIDE 0.9% 100 ML 440 MG IV (08:09)
[2025-01-22] MEDS: ENOXAPARIN 40 MG/0.4 ML SYRINGE SUBCUT (08:12)
[2025-01-22] MEDS: SODIUM CHLORIDE 0.9% FLUSH 10 ML IV ×2 (08:12→20:32)
[2025-01-22] MEDS: ASPIRIN EC 325 MG TABLET PO (08:12)
[2025-01-22] MEDS: DEXAMETHASONE 10 MG/ML VIAL IV (08:12)
--- NOTE | 2025-01-22 10:20 | OT.IPNOTE ---
Pt to get MRI and ECHO, check on pt in PM for OT eval.
--- NOTE | 2025-01-22 12:08 | PT-IP ANOTE ---
checked on pt x 2. pt out for MRI on first attempt and was having echo done on 2nd attempt. will check back this afternoon.
--- NOTE | 2025-01-22 13:52 | PT.IIE ---
Current Diagnoses Other symptoms and signs involving the musculoskeletal system (01/21/25) Surgical History (Last Reviewed 01/06/25 @ 15:12 by Ky Briones DO) Anesthesia History of foot surgery History of surgery Medical History (Last Updated 01/22/25 @ 08:50 by Markus Boone MD) Chronic constipation Chronic low back pain Depression Hearing deficit Hyperlipidemia (08/06/16) Lumbar degenerative disc disease Lumbar facet arthropathy Lumbar radiculopathy Lumbar spondylosis Mild single current episode of major depressive disorder (08/06/16) Orthostatic hypotension Vision disorder Physical Therapy Inpatient Evaluation/Re-Eval M1 PT/OT-IP Prior Functional Status Start: 01/22/25 16:14 Freq: NEEDED Status: Active Protocol: Document 01/22/25 13:52 AB (Rec: 01/22/25 16:29 AB [id number]) Medical Review Prior Functional Status Medical History Reviewed Yes Communication able to make needs known Mobility and Gait spouse was independent with all mobilities and ambulation without AD; has h/o falls due to dizziness Social History Household Members none Living Arrangements House Number of Floors (Floors) One Floor Number of Stairs To Enter/Railing? 3 steps no rails to enter Home Environment Standard Height Toilet,Walk in Shower M2 PT-IP Current Condition Start: 01/22/25 16:14 Freq: NEEDED Status: Active Protocol: Document 01/22/25 13:52 AB (Rec: 01/22/25 16:29 AB [id number]) Physical Therapy Current Condition Current Condition Evaluation Date 01/22/25 Treatment Diagnosis seizure; difficulty in walking Onset Date 01/21/25 M3 PT-IP Subjective Start: 01/22/25 16:14 Freq: NEEDED Status: Active Protocol: Document 01/22/25 13:52 AB (Rec: 01/22/25 16:29 AB [id number]) Subjective Physical Therapy Visit Type Type Initial Evaluation Visit Start Time 13:52 Visit Stop Time 14:30 Number of FAN MAIL EDITOR Visits 0 Physical Therapy Visit Comments Patient Comments agreeable to do PT M4 PT-IP Mobility and Gait Start: 01/22/25 16:14 Freq: NEEDED Status: Active Protocol: Document 01/22/25 13:52 AB (Rec: 01/22/25 16:29 AB [id number]) PT-Bed Mobility Assessment Supine to Sit Supine to Sit Standby Assistance Sit to Supine Sit to Supine Standby Assistance PT-Transfer Assessment Sit to and From Stand Sit to and from Stand Contact Guard Assistance,1 Person Assistance,Use of Upper Extremities Equipment Transfer Assistive Device None,Gait Belt Orthotic/Prosthetic Devices or Brace: No Comments Mobility Comments pt in bed and ex-spouse in room. pt agreed to do PT. BP: 100/52. obtained PLOF and home set up from ex-spouse. supine to sit SBA. able to sit on EOb SBA. pt with decrease ability to use LUE and needs reminders to increase LUE awareness and position. no c/ o dizziness. BP: 103/54. completed sit to stand CGA and ambulated in the room without AD ~ 35 ft CGA and cues. presents with stooped posture. pt with difficulty walking in a straight path and tends to swerve to the side. ex- spouse stated that pt walks that way even before. pt made aware of posture and steadiness with ambulation. ambulated again in room ~ 35 ft CGA with more upright posture but still tends to swerve to one side when walking. pt requested to go back to bed. sit to supine SBA needed to remind pt to bring LUE out from under him. positioned pt on the bed. call light and table placed within reach. informed pt and ex-spouse on acute rehab recommendation vs SNF. pt does not want to decide right now. informed also that if pt decided to go home , he will need 24/7 assist and outpt PT vs HHPT depending if HHPT is available at [facility] where pt lives. Gait Assessment Gait Gait Assistance Required: Contact Guard Assist Distance (Feet) 35 Able to Maintain Weight Bearing Status Yes During Gait Assistive Devices Assistive Device None,Gait Belt Gait Deviations General Gait Pattern Ataxic,Decreased Stride Length ,Decreased Feet Clearance, Flexed Trunk Factors Limiting Gait Function Factors Limiting Gait Function Decreased Activity Tolerance, Decreased Sensation,Decreased Strength,Incoordination,Poor Balance,Poor Safety Awareness PT-Balance Assessment Sitting Balance and Reactions Static Sitting Balance Ability Good Dynamic Sitting Balance Ability Good Standing Balance and Reactions Static Standing Balance Ability Fair Dynamic Standing Balance Ability Fair Device Used without AD M5 PT-IP Objective Assessments Start: 01/22/25 16:14 Freq: NEEDED Status: Active Protocol: Document 01/22/25 13:52 AB (Rec: 01/22/25 16:29 AB [id number]) Orientation Orientation/Cognition Level of Alertness Alert Orientation Name,Place,Situation Language Function Ability Hard of Hearing Safety Awareness Decreased Safety Awareness Memory Description Short Term Impaired Comments needs time to process instructions Gross Range of Motion Lower Extremity ROM Assessment Within Functional Limits Strength Upper Extremity Strength Assessment Left Impaired Shoulder refer to OT notes Lower Extremity Strength Assessment Within Functional Limits Sensation Assessment Sensation Gross Sensation Right UE Impaired Light Touch Impaired Muscle Tone Muscle Tone WNL Yes M6 PT-IP Treatment Start: 01/22/25 16:14 Freq: NEEDED Status: Active Protocol: Document 01/22/25 13:52 AB (Rec: 01/22/25 16:29 AB [id number]) Physical Therapy Treatment Education Education Provided Safety M7 PT-IP Assessment and Plan Start: 01/22/25 16:14 Freq: NEEDED Status: Active Protocol: Document 01/22/25 13:52 AB (Rec: 01/22/25 16:29 AB [id number]) PT Summary Assessment and Plan Potential Rehabilitation Potential Fair Status of Condition at Evaluation Evolving Summary Impairments Pain,ROM,Strength,Balance, Coordination,Sensation,Tone, Cognition,Bed Mobility, Transfers,Gait,Activity Tolerance Assessment Summary pt is a 74 y/o M who presented with LUE weakness. pt with episodes of seizures and also found to have R frontal meningioma. pt requiring CGA with ambulation without AD with unsteady gait. pt with decrease LUE strength and awareness of LUE. Recommending acute rehab vs SNF rehab. will continue to assess. Goals Bed Mobility Goal Independent Transfer Goal Independent Gait Goal Independent Gait Distance 200 Other Goals up/down 3 steps without rails mod I Days to Meet Goals 10 Frequency of Treatment Frequency Of Treatment Once a Day Treatment Plan Physical Therapy Treatment Plan Bed Mobility Training,Transfer Training,Gait Training, Therapeutic Exercise,Balance Retraining,Discharge Planning, Hot or Cold Pack,Neuromuscular Re-ed,Coordination Retraining ,Manual Therapy Precautions Other Precautions falls; seizure Recommendations To Nursing Amount of Assist Needed 1 Person Assist Discharge Recommendations PT Discharge Recommendations SNF vs Acute Rehab Transportation Needs at Discharge Private Vehicle,Wheelchair/ Cabulance - PT assist 1
--- NOTE | 2025-01-22 14:19 | ST.IPCSEOM ---
Visit Care Team Role Provider Type Adore Kessler MD Emergency Provider Physician Referring Provider Specialty: Emergency Medicine Address: [address] [place] [address], [id number] Fax: Email: [email or web address] Markus Boone MD Attending Provider Physician Primary Care Provider Specialty: Internal Medicine Address: [address] [place] [address], [id number] Email: [email or web address] Cristian Bañuelos MD Admit Provider Physician Other Providers Specialty: Family Practice Address: [address] [place] [address], [address], [address] Email: [email or web address] Current Diagnoses Other symptoms and signs involving the musculoskeletal system (01/21/25) Past Medical History (Last Updated 01/22/25 @ 08:50 by Markus Boone MD) Chronic constipation (Medical) Chronic low back pain (Medical) Depression (Medical) Hearing deficit (Medical) Moderate loss Hyperlipidemia (Medical 08/06/16) Lumbar degenerative disc disease (Medical) Lumbar facet arthropathy (Medical) Lumbar radiculopathy (Medical) Lumbar spondylosis (Medical) Mild single current episode of major depressive disorder (Medical 08/06/16) Orthostatic hypotension (Medical) Vision disorder (Medical) Wear prescription lenses 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 Per H&P presents to the emergency department with left hand weakness patient states his symptoms started this morning. Where all of a sudden his left arm had twitches or muscle spasms. And involuntary movements this lasted for a number of minutes . Afterwards he felt like his arm was quite weak. He initially thought he was just having a Charley horse or muscle spasm. His arm afterwards he was unable to move. Can move it lifted above his head or bend his elbow or move his hands or fingers. They became concerned enough that they called the clinic and he was then sent to the emergency department. In the emergency department patient had laboratory testing done which showed normal white blood cell count normal hemoglobin hematocrit and normal electrolyte and kidney function. Because of the weakness in his arm patient had a CT scan of his head which showed no intracranial pathology. CT angiogram of head and neck which showed no arterial abnormality and head or neck. Over the course of his hospital admission the arm weakness improved and he was able to move his hand above his head but he continued to have decreased writing manager strength and inability to move his hand . Per MD progress note on 10/2024 Patient was admitted after negative workup in the ER including CT angiography of the head and neck and CT scan of the head. MRI of the head was performed which shows a small frontal meningioma and some sort of increased signal near the right central sulcus near the vertex. This was a noncontrast MRI and recommendation is to repeat with contrast. Since then patient had a witnessed tonic- clonic seizure this morning. Seizure was apparently mostly left-sided and spontaneously stopped he was also given a dose of Ativan after cessation of the seizure. Discussing it with the patient it appears he had a similar event that is set this all off yesterday morning. He described his arm being uncontrolled so he was somewhat aware of what he was going on yesterday and also this morning. Then he had the weakness in his hand and arm which prompted us to suggest he come to the ER which resulted in hospitalization. Per MD addendum to progress note Repeat MRI done with contrast shows that that has no significant postcontrast enhancement in the area of the previous than has been on FLAIR imaging in the right frontoparietal area. The presumed small right frontal meningioma also does not demonstrate significant postcontrast enhancement. I still believe there is an abnormality here that likely triggered the seizure and apparently we can not rule out a low-grade glioma. I have placed a phone call to [facility] to speak with Neurology there about next steps, potentially even transfer to tertiary care center for EEG and in-person Neurology evaluation. Pt PMH includes depression, hyperlipidemia, and chronic back issues s/p recent L3-L5 medial branch blocks. ST consulted for clinical swallow evaluation in setting of workup for possible stroke. Per CXR 01/21/2025 No acute pulmonary process. WBC = 12.0, elevated at this time Oxygen saturations in high 90s on room air at this time. Subjective Observations RN cleared ST to work with pt, no reported difficulties re: swallowing at this time. Pt found reclined in bed asleep upon ST entering pt's room. Pt awoke to verbal stimulation. ST assisted pt to sit upright in bed. Pt agreeable to participate in clinical swallow evaluation. Pt alert, awake, and cooperative throughout ST evaluation. Pt denied hx of dysphagia and reported baseline diet is regular solids and thin liquids. Pt PMH negative for prior CVA/TBI, respiratory issues, and GERD. Pt observed to have left hand weakness. Reported by Patient/Caregiver Pain/Discomfort No Comment No c/o re: swallowing at this time. Tolerating diet of regular solids and thin liquids at this time. Current Diet Regular (IDDSI 7) Baseline Feeding Method Independent in self-feeding The IDDSI Framework Protocol: IDDSI.1 Objective Assessment Mental Status Alert,Responsive,Cooperative Oral Integrity WFL Dentition Missing teeth Lip Function Within normal limits Observation of Lips at Rest Symmetrical Pucker Within normal limits Lip Retraction Within normal limits Tongue Function Within normal limits Observations of Tongue at Rest Within normal limits Tongue Protrusion Within normal limits Tongue Lateralization Within normal limits Jaw Function Within normal limits Observation of Jaw at Rest Within normal limits Jaw Opening Within normal limits Hard/Soft Palate Function Within normal limits Observations of Hard/Soft Palate Within normal limits Respiratory Sufficiency Within normal limits Comment Pt observed to have mostly complete natural dentition with gold crowns/filling throughout in fair condition. OME indicated CN V, VII, IX/X, and XII grossly intact bilaterally. Vocal quality reported to be baseline. Pt able to easily and effectively elicit volitional cough, cough subjectively judged to have glottal attack. No baseline cough observed prior to PO trials. Pt breathing comfortably on room air, O2 saturations in 90's. Food and Liquid Trials Position During Assessment Upright (90 degrees) Liquids Trialed Thin (IDDSI 0) Solid Trials Purred (IDDSI 4),Soft & Bite- sized (IDDSI 6),Regular (IDDSI 7) Administration Type Cup single sip,Cup consecutive sips,Self-feeding Oral Impairment Within functional limits Oral Phase Comments Pt self-fed all PO trials with right hand, required minimal set up assistance given left hand weakness. Pt observed across trials of thin liquids via cup (3 oz water), puree via tsp (apple sauce), soft/ bite sized via tsp (diced peaches), and regular solid ( x1 matti cracker). Pt exhibited adequate bolus retrieval from spoon and cup, oral containment, bolus manipulation, and oral clearance across all PO trials . Pt indicated a preference for cup sip over use of straw for drinking liquids at baseline. Pharyngeal Impairment Within functional limits Pharyngeal Phase Comments x1 instance of throat clear noted /p consecutive sips from cup. No further signs/ symptoms of aspiration noted with single cup sips and additional consecutive cup sips. No globus sensation reported. Fatigue/Endurance Endurance WNL The IDDSI Framework Protocol: IDDSI.1 Findings Swallowing Function Within functional limits Swallowing Function Comments Functional oropharyngeal swallow Severity of Swallow Impairment Within functional limits Prognosis Good Comment No clinical signs/symptoms of oropharyngeal dysphagia at this time. Pt is felt to be at low risk of aspiration pneumonia given unremarkable CXR, CNE WNL, pulmonary stability on room air, SBA mobility, and independence for feeding/oral care. Recommendations Instrumental Assessment No Swallowing Treatment No Recommended Solids Regular (IDDSI 7) Recommended Liquids Thin (IDDSI 0) Other Recommendations Recommend continuing diet of regular solids and thin liquids with general aspiration precautions (PO when alert, upright, small bites/sips, slow rate) and medications as tolerated/ preferred by pt. No further skilled ST services warranted at this time as it appears pt is at swallowing baseline, ST signing off. Pt educated re: results and recommendations of evaluation and voiced understanding and agreement. RN/MD notified re: results and recommendations. Please re- consult ST with any change in status. Safety Precautions/Swallowing Feed only when alert,Remain Recommendations upright (90 degrees) during all oral intake,Small bites and sips when eating,Slow rate ; swallow between bites Medication Recommendations As Tolerated Education Patient/Caregiver Education Described results of evaluation,Patient expressed understanding of evaluation
--- NOTE | 2025-01-22 14:56 | OT.IP.EVAL ---
Current Diagnoses Other symptoms and signs involving the musculoskeletal system (01/21/25) Past Medical History (Last Updated 01/22/25 @ 08:50 by Markus Boone MD) Chronic constipation Chronic low back pain Depression Hearing deficit Hyperlipidemia (08/06/16) Lumbar degenerative disc disease Lumbar facet arthropathy Lumbar radiculopathy Lumbar spondylosis Mild single current episode of major depressive disorder (08/06/16) Orthostatic hypotension Vision disorder Surgical History (Last Reviewed 01/06/25 @ 15:12 by Ky Briones DO) Anesthesia History of foot surgery History of surgery Occupational Therapy Inpatient Evaluation/Re-Eval M2 OT-IP Current Condition Start: 01/22/25 15:22 Freq: Status: Active Protocol: Document 01/22/25 13:55 CCC (Rec: 01/22/25 16:14 CCC Desktop) Occupational Therapy Current Condition Current Condition Evaluation Date 01/22/25 Treatment Diagnosis Seizures-left arm weakness Diagnosis Onset Date 01/21/25 M3 OT- IP Subjective and Pain Start: 01/22/25 15:22 Freq: Status: Active Protocol: Document 01/22/25 13:55 CCC (Rec: 01/22/25 16:14 CCC Desktop) OT- Subjective Occupational Therapy Visit Type Type Initial Evaluation Visit Start Time 13:55 Visit Stop Time 14:56 Occupational Therapy Visit Comments Patient Comments Pt agreed to get up. Patient/Caregiver Goals TO go home OT Pain Assessment Pain When Pain Assessed At Rest Pain Present Pain Present Denied Pain M4 OT- IP ADL's Start: 01/22/25 15:22 Freq: Status: Active Protocol: Document 01/22/25 13:55 CCC (Rec: 01/22/25 16:14 [facility] Desktop) OT [id number] Comments OT Self-Feeding Comments Not at meal time. OT ADL-Grooming Comments OT Grooming Comments Not performed. OT ADL-Oral Care Comments Oral Care Comments Not performed. Pt will need at least assist with set-up due to left hand weakness. OT ADL-Dressing General Eval Lower Body Dressing Ability Standby Assistance,Maximum Assistance Comments OT Dressing Comments Pt able to use right hand to rosa/doff his right socks. Pt needing MAXAX to incorporate left hand at this time. OT ADL-Toileting Comments OT Toileting Comments NOt performed. Pt will need assist for pants management due to decreased left hand strength. OT ADL-Bathing Comments OT Bathing Comments Pt will benefit from assist and use of a shower chair. M5 OT- IP IADL's Start: 01/22/25 15:22 Freq: Status: Active Protocol: Document 01/22/25 13:55 [facility] (Rec: 01/22/25 16:14 [facility] Desktop) OT-Instrumental Activities of Daily Living Deficits IADL Deficits Identified Deficits Home Safety Awareness Awareness of Need for Assistance at Home Decreased Awareness Ability to Problem Solve Emergency Able to Problem Solve Situations Home Safety Comments Pt needing increased time to come up with answers for home safety. Medication Management Medication Management Comments Pt would benefit from assist initially. Money Management Money Management Comments Pt would benefit from at least supervision. Meal Preparation Meal Preparation Comments At this time, best for pt to have assist. Charge Poster Charge Poster Comments At this time, best for pt to have assist. Driving Driving Comments Dues to seizures, suggest no driving at this time. M6 OT- IP Functional Cognition Start: 01/22/25 15:22 Freq: Status: Active Protocol: Document 01/22/25 13:55 [facility] (Rec: 01/22/25 16:14 [facility] Desktop) Cognitive Factors Limiting Selfcare Function Cognitive Ability Level of Alertness Alert Patient Orientation Name,Age,Birthday,Month,Year, Place,Situation Attention Span Ability Capable of Focused Attention, Capable of Sustained Attention Memory Description Short Term Impaired Executive Function Ability Unable to Remember Details Cognitive Tests SLUMS Pt scored 17/30 which implies dementia. Pt thought it was versus Saturday, able to recall 1/5 objects after time passes, not able to draw the numbers on the clock correctly and forgetting to write 10 and 11, not able to draw the hours hands correctly after time given, able to answer 2/4 questions right after paragraph read. Per pt's ex- feels that he is close to his baseline for cognitive needs. Pt feels that he is off and having trouble to initiate and needing increased time to think. Cognitive Comments Cognitive Assessment Comments Pt needing increased time to process and solve problems. Noted some left neglect with his left arm as well. Pt did not realize that he was lying on his left arm during bed mobility needs.Good to reassess SLUMS at a later date. OT- Vision and Hearing OT- Hearing Assessment OT- Hearing Assessment Hearing Impaired,Use of Hearing Aids OT- Vision Assessment Visual Acuity Glasses All The Time Occular Pursuits WFL Visual Convergence WFL Visual De [place]az WFL Diplopia Absent M7 OT- IP Mobility and Balance Start: 01/22/25 15:22 Freq: Status: Active Protocol: Document 01/22/25 13:55 [facility] (Rec: 01/22/25 16:14 [facility] Desktop) OT-Transfer Assessment Sit to and From Stand Sit to and from Stand Contact Guard Assistance Transfers Transfer Ability Contact Guard Assistance Technique Transfer Destination Bed Transfer Technique Stand Step Pivot Devices Transfer Assistive Devices Gait Belt Comments Mobility Comments CGA to stand and walk in the room as pt tends to vears with his gait. Pt posture in flexed with rounded shoulders when walking. OT- Balance Assessment Sitting Balance and Reactions Static Sitting Balance Ability Good Dynamic Sitting Balance Ability Fair Standing Balance and Reactions Static Standing Balance Ability Fair Dynamic Standing Balance Ability Fair M8 OT- IP Objective Assessments Start: 01/22/25 15:22 Freq: Status: Active Protocol: Document 01/22/25 13:55 [facility] (Rec: 01/22/25 16:14 [facility] Desktop) OT Gross Range of Motion Upper Extremity Range of Motion Assessment Left Impaired OT Strength Upper Extremity Strength Assessment Left Impaired Hand Sales Activity Manager Strength Hand Dominance Right Comments Strength Comments RUE 4/5, LUE 3-/5, elbow3+/5, finger extension 0/5 OT- Coordination Assessment Upper Extremity Finger to Nose Test Left UE Impaired Finger Tapping Test Left UE Impaired OT-Muscle Tone Assessment Comments Muscle Tone Comments Slight tightness/tone in left hand OT Sensation Assessment Comments Summary Comments Increased time to process light touch especially with left shoulder M9 OT- IP Assessment and Plan Start: 01/22/25 15:22 Freq: Status: Active Protocol: Document 01/22/25 13:55 [facility] (Rec: 01/22/25 16:14 [facility] Desktop) OT Summary Assessment and Plan Potential Rehabilitation Potential Good Analytic Complexity at Evaluation Moderate Summary OT Impairments Range of Motion,Strength, Balance,Coordination,Sensation ,Tone,Functional Cognition, Functional Mobility,Self- Feeding,Grooming,Dressing, Toileting,Bathing,Toilet Transfers,Shower Transfers, Activity Tolerance Progress Towards Goals Slow Progress due to Medical Issues,Slow Progress due to Cognition Assessment Summary Pt MOD complexity and here due to left UE weakness and also having had a seizure. Pt not able to use his left hand to for ADL needs at this time. Educated pt how to stretch his fingers and work on AROM for left UE. Pt would greatly benefit from acute rehab versus skilled rehab at this time pending progress. Goals Self-Feeding Goal Independent,Standby Assistance Grooming Goal Independent Dressing Goal Independent Toileting Goal Independent Bathing Goal Independent Toilet Transfer Goal Independent Shower Transfer Goal Independent Days to Meet Goals 15 Frequency of Treatment Other frequency 5x/week Treatment Plan OT Treatment Plan ADL Training,Functional Cognition Training,Functional Mobility,Neuromuscular Re- education,Therapeutic Exercises,Patient/Family Education,Discharge Planning Discharge Recommendations OT Discharge Recommendations SNF vs Acute Rehab Transportation Needs at Discharge Private Vehicle
--- NOTE | 2025-01-22 16:52 | CM.DANOTE ---
DCP Assessment Note: Pt is a 74yo male, resident of [facility], is admitted for seizures, possible CVA. Pt lives in a house alone. Pt's Primary Care Provider is Dr. Markus Boone and insurance is [employer]. Reviewed chart and discussed with multidisciplinary team pt's medical status and initial discharge needs. DCP attempted 3x throughout the day to meet with pt, pt was either sleeping (administered Ativan this morning) or working with another discipline. Per PT/OT, recommending Acute Rehab if available. Per PT, patient stated he would need more time to determine if he wants to go to rehab at this time. At 1630: DCP met w/patient at bedside; introduced self and role. Patient was found in bed, very somnolent, not able to participate in assessment/discussion. Not able to discuss PT/OT recommendations or identify preferences. Plan: Anticipating Acute Rehab, will need to send referrals at the consent of the patient on following date. CM team will follow closely for coordination of discharge plans. Kathy Link [facility] Discharge Planning/Care Management Advanced directive, confirm from FAMILY Start: 01/21/25 21:18 Freq: Q24H Status: Active Protocol: Document 01/21/25 21:18 SH (Rec: 01/22/25 00:41 SH [id number]) Advance Directive, confirm on record Time 21:00 Person contacted pt Copy received No CM Discharge Assessment Start: 01/22/25 15:24 Freq: Status: Active Protocol: Document 01/22/25 15:24 MW (Rec: 01/22/25 15:25 MW [id number]) Discharge Planning Assessment Assigned [place] POPPY Chavez DPOA/Assigned Designee Name SABRA Wu Contact Information [phone] Advance Directives? Yes Advance Directives on File No History Provided By Patient,Medical Record Has Patient been admitted in last 30 No days? Prior Living Arrangements House Comment [facility] Household Members none Type of transporation used prior to Drives own vehicle admit Independent with ADL's Yes Is patient alert and oriented? Yes Discharge Plan Inpatient Rehab Unit Additional Comment Pt still unsure about recommendations and no preferences identified yet. Whiteboard Updated in Patient Room with Yes name and ext. # of [place] Comment [phone] Review Status In Process Please Provide Date Initial DC 01/22/25 Assessment Was Performed Next Review Type Continued Stay Review
[2025-01-22] MEDS: ATORVASTATIN 20 MG TABLET PO (20:32)
[2025-01-22] MEDS: levETIRAcetam 250 MG TABLET 500 MG PO (20:32)
[2025-01-22] MEDS: MIRTAZAPINE 15 MG TABLET PO (20:32)
[2025-01-23 03:13] VITALS: BP 115/73; PULSE 65; RESP 20; TEMP 36.6; O2SAT 95
[2025-01-23 08:00] VITALS: BP 116/77; PULSE 65; RESP 16; TEMP 36.6; O2SAT 96
[2025-01-23] MEDS: SODIUM CHLORIDE 0.9% FLUSH 10 ML IV ×2 (09:00→20:30)
[2025-01-23] MEDS: levETIRAcetam 250 MG TABLET 500 MG PO ×2 (09:56→20:29)
[2025-01-23] MEDS: ASPIRIN EC 325 MG TABLET PO (09:56)
[2025-01-23] MEDS: ENOXAPARIN 40 MG/0.4 ML SYRINGE SUBCUT (09:56)
[2025-01-23] MEDS: CLOPIDOGREL 75 MG TABLET PO (09:56)
--- NOTE | 2025-01-23 10:15 | PT.IPTN ---
Current Diagnoses Other symptoms and signs involving the musculoskeletal system (01/21/25) Physical Therapy Treatment Note M2 PT-IP Current Condition Start: 01/22/25 16:14 Freq: NEEDED Status: Active Protocol: Document 01/22/25 13:52 AB (Rec: 01/22/25 16:29 AB [id number]) Physical Therapy Current Condition Current Condition Evaluation Date 01/22/25 Treatment Diagnosis seizure; difficulty in walking Onset Date 01/21/25 M3 PT-IP Subjective Start: 01/22/25 16:14 Freq: NEEDED Status: Active Protocol: Document 01/23/25 10:15 AB (Rec: 01/23/25 11:25 AB Desktop) Subjective Physical Therapy Visit Type Type Treatment Note Visit Start Time 10:15 Visit Stop Time 10:35 Number of FILM INSPECTOR Visits 0 Physical Therapy Visit Comments Patient Comments agreeable to do PT M4 PT-IP Mobility and Gait Start: 01/22/25 16:14 Freq: NEEDED Status: Active Protocol: Document 01/23/25 10:15 AB (Rec: 01/23/25 11:25 AB Desktop) PT-Bed Mobility Assessment Supine to Sit Supine to Sit Independent PT-Transfer Assessment Sit to and From Stand Sit to and from Stand Standby Assistance,1 Person Assistance,Use of Upper Extremities Equipment Transfer Assistive Device None,Gait Belt Orthotic/Prosthetic Devices or Brace: No Transfers Transfer Destination Chair Transfer Technique ambulated Transfer Ability Level of Assist Standby Assistance,Contact Guard Assistance,1 Person Assistance,Use of Upper Extremities Comments Mobility Comments pt in bed. ex-spouse in room. pt agreed to do PT. BP: 113/ 72 . ex-spouse informed PT that she will stay with pt as long as needed since she just lives across pt's house. agreed to have outpt PT/OT and does not want to go to SNF/ acute rehab. pt able to move LUE better today but still shows weakness . able to slowly fire coordinator with fingers but unable to extend. supine to sit SBA. able to sit on EOB SBA. pt can be impulsive. completed sit to stand SBA and ambulated in room without AD SBA. gait is steadier compared to yesterday 's but still presents with forward head and trunk flexion and antalgic gait. no LOB. pt sat back on chair and rested. sit to stand SBA and ambulated in the hallway ~ 125 ft without AD SBA to occasional CGA and cues for upright posture and slowing down. pt completed up/down steps using B rails SBA step through pattern. able to go up step without rails step through pattern SBA to CGA and step to patter for descending steps SBA to CGA. pt ambulated back to his room SBA to CGA. agreed to stay up on the chair . positioned pt on the chair. call light and table placed within reach. informed counter caser regarding pt's d/c plans. Gait Assessment Gait Gait Assistance Required: Standby Assistance,Contact Guard Assist Distance (Feet) 125 Able to Maintain Weight Bearing Status Yes During Gait Assistive Devices Assistive Device None,Gait Belt Orthotic/Prosthetic Devices or Brace: No Gait Deviations General Gait Pattern Ataxic,Decreased Feet Clearance,Flexed Trunk Factors Limiting Gait Function Factors Limiting Gait Function Decreased Activity Tolerance, Poor Balance,Poor Safety Awareness Stair Climbing Assessment Evaluation Level of Assist On Stairs Standby Assistance,Contact Guard Assistance Devices Stair Climbing Assistive Devices None,Left Railing,Right Railing Technique/Endurance Stair Climbing Direction Ascend and Descend Stair Climbing Technique Step Over Step,Step to Step Number of Steps Climbed 3 Stair Climbing Set # Repetitions (reps) 2 M5 PT-IP Objective Assessments Start: 01/22/25 16:14 Freq: NEEDED Status: Active Protocol: Document 01/22/25 13:52 AB (Rec: 01/22/25 16:29 AB [id number]) Orientation Orientation/Cognition Level of Alertness Alert Orientation Name,Place,Situation Language Function Ability Hard of Hearing Safety Awareness Decreased Safety Awareness Memory Description Short Term Impaired Comments needs time to process instructions Gross Range of Motion Lower Extremity ROM Assessment Within Functional Limits Strength Upper Extremity Strength Assessment Left Impaired Shoulder refer to OT notes Lower Extremity Strength Assessment Within Functional Limits Sensation Assessment Sensation Gross Sensation Right UE Impaired Light Touch Impaired Muscle Tone Muscle Tone WNL Yes M6 PT-IP Treatment Start: 01/22/25 16:14 Freq: NEEDED Status: Active Protocol: Document 01/23/25 10:15 AB (Rec: 01/23/25 11:25 AB Desktop) Physical Therapy Treatment Education Education Provided Safety M7 PT-IP Assessment and Plan Start: 01/22/25 16:14 Freq: NEEDED Status: Active Protocol: Document 05/03/25 10:15 AB (Rec: 01/23/25 11:25 AB Desktop) PT Summary Assessment and Plan Potential Rehabilitation Potential Fair Summary Impairments Pain,ROM,Strength,Balance, Coordination,Sensation, Cognition,Bed Mobility, Transfers,Gait,Activity Tolerance Progress Towards Goals Slow Progress due to Medical Issues,Slow Progress - Other Assessment Summary pt progressing with mobility and able to ambulate ~ 125 ft without AD SBA to CGA. pt plans to go home and ex-spouse will stay with him to assist as long as needed and does not want to go to acute rehab/SNF . pt will also need outpt PT. Goals Bed Mobility Goal Independent Transfer Goal Independent Gait Goal Independent Gait Distance 200 Other Goals up/down 3 steps without rails mod I Days to Meet Goals 10 Frequency of Treatment Frequency Of Treatment Once a Day Treatment Plan Physical Therapy Treatment Plan Bed Mobility Training,Transfer Training,Gait Training, Therapeutic Exercise,Balance Retraining,Discharge Planning, Hot or Cold Pack,Neuromuscular Re-ed,Coordination Retraining ,Manual Therapy Precautions Other Precautions falls; seizure Recommendations To Nursing Amount of Assist Needed 1 Person Assist Discharge Recommendations PT Discharge Recommendations Home with 15/04 Assist Available,Acute Rehab, Outpatient PT Transportation Needs at Discharge Private Vehicle,Wheelchair/ Cabulance - PT assist 1
--- NOTE | 2025-01-23 10:37 | P.PN_ITS ---
Subjective Subjective Date Patient Seen: 01/23/25 Time Patient Seen: 10:00 Interval history: Patient with uneventful night Still feels like he was having trouble controlling his left arm but none of the more classic seizure activity the was witnessed by nursing staff yesterday or that he reported at home prior to admission May perhaps be seeing things on the wall such as lines etcetera. Kind of difficult to get a good story out of him Speech definitely much improved back to normal this morning. Patient remembers aspects about his interactions with my children when they were in school in his class, and so memory seems to be intact least in the more distant past Clearly able to move his left hand and wrist somewhat better than previous although no where near normal Exam Vital Signs (past 8 hours): - 01/23/25 03:13 01/23/25 08:00 Temperature 97.9 F 97.9 F Pulse Rate 65 65 Respiratory Rate 20 16 Blood Pressure 115/73 116/77 Pulse Oximetry 95 96 Oxygen Delivery Method Room Air Oxygen Flow Rate 0 Narrative Exam Narrative: Weakness of flexion-extension left elbow verses right, improved strength and movement of left wrist both flexion and extension able to parasitology teacher in hand although still extension of fingers very minimal actively Objective Labs 01/21/25 13:58 01/21/25 13:58 [facility] [place] Medical History (Updated 01/22/25 @ 08:50 by Markus Boone MD) Lumbar radiculopathy Lumbar facet arthropathy Lumbar degenerative disc disease Lumbar spondylosis Chronic low back pain Chronic constipation Orthostatic hypotension Depression Vision disorder Hearing deficit Mild single current episode of major depressive disorder (08/06/16) Hyperlipidemia (08/06/16) Surgical History Anesthesia History of foot surgery History of surgery Family History Father Cancer Grandmother No problems noted. Mother No problems noted. Grandfather No problems noted. 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 Abnormality right pre frontal cortex-likely contributing to seizure below. Will need outpatient workup to more definitively define what is going on here. 2. Seizure-patient will continue on Keppra at current dose 500 b.i.d.. No further seizures at this point. Some altered mental status maybe some hallucinations perhaps related to the Keppra may need to reduce dose. Will not make change today and reassess tomorrow. Still believe his weakness has a postictal phenomenon 3. Left hand weakness-improvement in left-sided weakness speech etcetera. Continue to believe this is a postictal state that has slowly improving. Hopefully will stabilize enough he can go home with the assistance and we can work to get him an urgent outpatient neurological evaluation 4. Disposition-patient was hopefully as above can return home with assistance. Will need an urgent outpatient neurological evaluation. Will start that process CRISTOFER on Saturday Time-Based Coding :: [TOTAL MINUTES] spent with patient and on the chart (including review of chart, obtaining history, exam, reviewing outside data, placing orders, documenting exam and treatment plan, and counseling patient) on [DATE]. Quality VTE Deep Vein Thrombosis/Pulmonary Embolism Present on Admission: No IH PROFEE Sap Bi Developer Document charge(s): Yes Charge Codes Subsequent inpatient/observation care: [id number]
--- NOTE | 2025-01-23 11:50 | CM.DPC ---
DCP Cont: Per MD, pt making slow improvements today and likely postictal symptoms that will have slow resolution and plans to work on stat Neurology referral Mon AM for outpt f/u on seizure type symptoms and MRI results. Per PT, pt improved today and ex- bedside and plan is discharge home with exwife to stay with pt (she confirms she lives nearby and can stay with pt at d/c) and outpt PT. Pt may need list of local PT clinics and they will need to determine which accept [employer] [facility] under [facility]. Pt's PCP is following him in the hospital and can assist with writing outpt PT orders or getting referral team to assist with outpt PT. Plan: SW to follow tomorrow to confirm safe plan of home with ex- to stay and outpt PT for ongoing assist along with outpt Neurology f/u. POPPY Maldonado
[2025-01-23 12:00] VITALS: BP 134/90; PULSE 75; RESP 19; TEMP 36.5; O2SAT 99
--- NOTE | 2025-01-23 12:36 | PC.NURSE ---
Pt alert and oriented, follows commands, conversant. Offers no overt c/o pain. Does voice concern about left hand although s.o. bilieves it is better this morning. Director Of Online Education strong though not equal to right hand. Pt up with PT this morning without walker. lyric well.
[2025-01-23 16:00] VITALS: BP 105/65; PULSE 65; RESP 17; TEMP 36.8; O2SAT 95
[2025-01-23 20:12] VITALS: BP 128/78; PULSE 67; RESP 14; TEMP 36.9; O2SAT 96
[2025-01-23] MEDS: MIRTAZAPINE 15 MG TABLET PO (20:29)
[2025-01-23] MEDS: ATORVASTATIN 20 MG TABLET PO (20:29)
[2025-01-24 00:02] VITALS: BP 126/79; PULSE 67; RESP 17; TEMP 36.6; O2SAT 95
[2025-01-24 06:09] VITALS: BP 103/62; PULSE 56; RESP 16; TEMP 36.3; O2SAT 97
[2025-01-24 10:00] VITALS: BP 96/66; PULSE 80; RESP 15; TEMP 36.4; O2SAT 95
[2025-01-24] MEDS: levETIRAcetam 250 MG TABLET 500 MG PO (10:09)
[2025-01-24] MEDS: ASPIRIN EC 325 MG TABLET PO (10:09)
[2025-01-24] MEDS: CLOPIDOGREL 75 MG TABLET PO (10:10)
[2025-01-24] MEDS: SODIUM CHLORIDE 0.9% FLUSH 10 ML IV (10:10)
[2025-01-24] MEDS: ENOXAPARIN 40 MG/0.4 ML SYRINGE SUBCUT (10:10)
--- NOTE | 2025-01-24 10:45 | P.DS_ITS ---
History of Present Illness History of Present Illness Date Patient Seen: 01/24/25 Time Patient Seen: 10:48 Chief complaint: Possible stroke, sent by Dr. Boone Narrative: 74-year-old male with a past medical history of depression and low back pain presents to the emergency department with left hand weakness patient states his symptoms started this morning. Where all of a sudden his left arm had twitches or muscle spasms. And involuntary movements this lasted for a number of minutes. Afterwards he felt like his arm was quite weak. He initially thought he was just having a Charley horse or muscle spasm. His arm afterwards he was unable to move. Can move it lifted above his head or bend his elbow or move his hands or fingers. They became concerned enough that they called the clinic and he was then sent to the emergency department. In the emergency department patient had laboratory testing done which showed normal white blood cell count normal hemoglobin hematocrit and normal electrolyte and kidney function. Because of the weakness in his arm patient had a CT scan of his head which showed no intracranial pathology. CT angiogram of head and neck which showed no arterial abnormality and head or neck. 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 Patient has not previously had stroke-like symptoms. No history of heart disease. 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 Tam and recently had an MRI of his spine. He has no known history of hypertension does have a history of hyperlipidemia. {from Dr. Menendez H&P 01/21/2025} Discharge Providers Provider Date of admission: 01/21/25 17:02 Discharge Date: 01/24/25 Primary care physician: Markus Boone MD Consults: 01/21/25 17:09 Consult to Discharge Planning Routine Comment: Consult to Occupational Therapy Evaluate & Treat Comment: Physician Instructions: Evaluate and treat Consult to Physical Therapy Evaluate & Treat Comment: Physician Instructions: Evaluate and Treat Consult to Speech Therapy Evaluate & Treat Comment: Physician Instructions: Evaluate and treat Discharge provider: Markus Boone MD Summary Hospital Course Discharge Diagnosis: 1. Weakness left hand and wrist, improved over admission 2. New onset seizure disorder with possibility weakness secondary to seizure 3. Possible CVA causing left hand weakness 4. Right cerebral inflammation/mass at right central sulcus with increased FLAIR imaging on MRI, noncontrast enhancing 5. Probable small right frontal meningioma 6. Mild cognitive impairment 7. Lumbar radiculopathy status post median nerve block L3-L5 01/14/2025 8. Orthostatic hypotension 9. Depression 10. Chronic constipation Hospital Course: As above patient was admitted with the left hand and wrist and to a lesser extent elbow weakness documented on exam. Initially thought this to be a classic CVA. Initial imaging with CT angiography of the head and neck and noncontrast enhanced head CT unremarkable. MRI imaging demonstrated abnormal FLAIR signal with hyperintensity around the right central sulcus near the vertex, follow-up MRI with contrast showed this to be nonenhancing. Also small right frontal meningioma that is also did not enhance with contrast. The morning following admission patient had a witnessed partial seizure which she was aware involving mostly the left upper extremity as well as chest. He was seem to have worsening of his left arm symptoms following this event. He was loaded with IV Keppra and did not have any further seizure activity noted during the remainder of his hospitalization. He was continued on oral Keppra Consultation via telephone was made with the [facility] on-call Neurology. His brain imaging was push to that facility and upon review and discussion it could not be ruled out the patient had some sort of mass or neoplastic process going on in his right hemisphere as noted above. Did seem like this was the likely etiology for his seizure and hopefully his weakness [place] an element of a postictal finding given that has seem to improve and then worsen again following seizure. Indeed over the course of the next 48 hours patient's symptoms slowly improved but did not returned to anything like baseline. Telephone neurology consultation did not feel like patient needed transfer to tertiary care center or immediate further evaluation although certainly will need further evaluation probably to include EEG and certainly Neurology possibly neurosurgery Patient did improve significantly with his gait and other physical ability he was was felt to be safe to return home with 24 assistance. He was we therefore he was discharged on 01/24/2025. He will have home health services including skilled therapy set up We will work to get him seen on a very urgent basis by outpatient Neurology. He was obviously continue on his antiseizure medication. Given that we can not rule out this was more of a vascular event or CVA he will also continue on Plavix for 21 days with aspirin 81 mg daily and he was started on statin therapy for stroke risk reduction He will have close outpatient follow up with his PCP Status at Discharge Cognitive/behavioral status at discharge: oriented Functional status at discharge: uses cane/walker Overall status at discharge: patient is progressing back to baseline Time Spent with Patient Time spent: Greater than 30 minutes Exam Vital Signs (past 8 hours): - 01/24/25 06:09 01/24/25 10:00 Temperature 97.3 F L 97.5 F L Pulse Rate 56 L 80 Respiratory Rate 16 15 Blood Pressure 103/62 96/66 Pulse Oximetry 97 95 Oxygen Flow Rate 0 Oxygen Delivery Method Room Air Oxygen Flow Rate 0 Narrative Exam Narrative: Non acutely ill-appearing male lying in hospital bed HEENT unremarkable Lungs-clear Heart-regular rate and rhythm Abdomen-benign Neuro-normal neuro exam right side, left wrist improved over admission although still very weak on extension, really unable to provide any extension of fingers actively, able to flex fingers and wrist actively and passively. Mild weakness at left elbow compared to right. No cranial nerve defects identified Objective Imaging MRI - head: Radiologist's impression: PROCEDURE: MR HEAD/BRAIN WO CON INDICATIONS: weekness TECHNIQUE: Non-contrast axial T1 spin echo, axial T2 fast spin echo, sagittal and axial FLAIR, coronal T2 fast spin echo, axial gradient echo, axial diffusion and ADC through the brain. COMPARISON: [facility], CT, CT STROKE, 01/21/2025, 14:03. FINDINGS: Image quality: Excellent. CSF spaces: Ventricles appear symmetric in size and shape. Basal cisterns are patent. No extra-axial fluid collections. Brain: Small right frontal extra-axial mass measuring 1.8 x 0.8 centimeters (04/12), likely a meningioma. FLAIR hyperintense signal around the right central sulcus (04/13) without associated restricted diffusion. Possible moderate right dural thickening (7/16) most notable posteriorly. No intracranial bleeds. There is cerebral volume loss for age. There are periventricular and deep white matter chronic small vessel ischemic changes. Brainstem appears normal. Diffusion-weighted images show no acute infarct. No chronic ischemic insults. Normal intravascular flow voids are present. Skull and face: Calvarial bone marrow is normal in signal. Bilateral lens replacements. Otherwise, the orbits are unremarkable. Sinuses: Sinuses and mastoids are clear. IMPRESSION: No definite acute or subacute infarct. Abnormal FLAIR hyperintense signal around the right central sulcus near the vertex of uncertain etiology, consider infectious or inflammatory etiologies. Neoplasm is not entirely excluded. Recommend MRI brain with contrast. Possible mild right dural thickening. Likely small right frontal meningioma measuring 1.8 x 0.8 centimeters. Dictated by: Rahul Fofana M.D. on 01/21/2025 at 19:00 Approved by: Rahul Fofana M.D. on 01/21/2025 at 19:06 PROCEDURE: MR HEAD/BRAIN W CON INDICATIONS: abnl non contrast MRI.. TECHNIQUE: After the administration of contrast, axial and coronal and sagittal VIBE with fat saturation through the brain. COMPARISON: [facility], CT, CT STROKE, 01/21/2025, 14:03. [facility], MR, MR HEAD/BRAIN WO CON, 01/21/2025, 17:54. FINDINGS: Image quality: Excellent. CSF spaces: Ventricles are normal in size and shape. Basal cisterns are patent. No extra-axial fluid collections. Brain: Area of abnormal signal in the right frontoparietal region adjacent to the central sulcus demonstrates no significant postcontrast enhancement. Right frontal extra-axial lesion demonstrates hypointense signal without definite contrast enhancement, possibly related to susceptibility artifact. No abnormal intra-axial enhancement is seen. Skull and face: No abnormal enhancement in the calvarium or orbits. Sinuses: Sinuses and mastoids are clear. IMPRESSION: 1. No significant postcontrast enhancement is seen in the region of the previously seen right frontoparietal signal abnormality adjacent to the central sulcus. Low- grade glioma can have this appearance although infections or inflammatory process is not entirely excluded. 2. Previously seen suspected small right frontal meningioma does not demonstrate significant postcontrast enhancement, although contrast uptake could be obscured by susceptibility artifact. CT angiography head and neck: Radiologist's impression: PROCEDURE: CT ANGIO HEAD AND NECK INDICATIONS: stroke TECHNIQUE: After the administration of intravenous contrast, 1 mm thick sections acquired from the aortic arch through the [place] of [place]. 3-dimensional zymcbvw-nnbdxhbky-kenmtbpcie (MIP) and/or volume rendering reformats were acquired of the central intracranial vasculature and neck separately. For radiation dose reduction, the following was used: automated exposure control, adjustment of mA and/or kV according to patient size. COMPARISON: [facility], CT, CT STROKE, 01/21/2025, 14:03. FINDINGS: Image quality: Diagnostic. BRAIN: See separately dictated CT head report of 01/21/2025. HEAD CT ANGIOGRAPHY: Anterior circulation: Intracranial internal carotid arteries are normal in size and flow. The flow within the paired anterior cerebral arteries is normal and symmetric. The flow within the middle cerebral arteries is normal and symmetric. The anterior communicating artery is seen. No aneurysms are seen. Posterior circulation: Left vertebral artery dominance. Visualized portions of the vertebral arteries demonstrate normal caliber, and join to form a normal appearing basilar artery. Flow within the posterior cerebral arteries is normal and symmetric. No aneurysms are seen. NECK CT ANGIOGRAPHY: Carotid system: The great vessels demonstrate a conventional anatomy as they arise from the aortic arch. The origins of the common carotid arteries appear patent. The common carotid arteries demonstrate normal caliber and courses. The bifurcation regions are both widely patent. The internal carotid arteries demonstrate normal calibers and courses. Posterior circulation: The origins of the vertebral arteries both appear widely patent. The more superior extracranial portions of both vertebral arteries also demonstrate normal courses and calibers. They join to form a normal appearing basilar artery. Soft tissues: Visualized neck soft tissues demonstrate no suspicious abnormalities. Heterogeneous thyroid gland with areas of low attenuation and calcification. No priors. Bones: No suspicious bony lesions. Visualized cervical spine appears normally aligned. IMPRESSION: No significant intracranial arterial abnormality is seen. No significant abnormality is seen within the arteries of the neck. Enlarged heterogeneous thyroid. Thyroid ultrasound is recommended on a nonemergent basis for further evaluation. Any quantitative measurements of stenosis were performed using NASCET criteria. Dictated by: Bibi Gaspar M.D. on 01/21/2025 at 14:38 Approved by: Bibi Gaspar M.D. on 01/21/2025 at 14:41 Echo: Radiologist's impression: [place] +---------+ [facility] : : [address] [facility] : : [place] : : [address] : : Phone: [phone] Echocardiogram Report + + :Name: GONZALO MCKEON Study Date: 01/22/2025 Height: 70 in : :[facility] ReadingLocation: Weight: 180 lb : : Gender: Male BSA: 2.0 m2 : :: 1950 Age: 74 yrs BP: 119/75 mmHg: :Reason For Study: STROKE : :Ordering Physician: NEHEMIAS : :CRISTIAN Performed By: Cristian Pedraza : :Referring: CRISTIAN DEL CID : + + Interpretation Summary The left ventricle is normal in size. Left ventricular systolic function appears normal without focal wall motion abnormalities. The ejection fraction is estimated to be 55-60%. Diastolic parameters suggest a relaxation abnormality of the left ventricle, consistent with probable normal filling pressures. The right ventricle grossly appears normal in size with probable normal systolic function. Pulmonary artery pressures cannot be estimated because of the lack of a measurable TR jet velocity but the IVC suggests a CVP of around 3 mmHg. The left atrium grossly appears normal in size. The aortic root is normal size. No gross valvular abnormalities. Procedure: A two-dimensional transthoracic echocardiogram with color flow and Doppler was performed. The study quality was technically difficult. There is no prior echocardiogram noted for this patient. The patient was in normal sinus rhythm during the exam. Left Ventricle: The left ventricle is normal in size. There is normal left ventricular wall thickness. There is no ventricular septal defect visualized. Left ventricular systolic function appears normal without focal wall motion abnormalities. The ejection fraction is estimated to be 55-60%. Diastolic parameters suggest a relaxation abnormality of the left ventricle, consistent with probable normal filling pressures. Right Ventricle: The right ventricle grossly appears normal in size with probable normal systolic function. Atria: The left atrium grossly appears normal in size. The right atrium grossly appears normal in size. There is no Doppler evidence for an interatrial shunt. Mitral Valve: The mitral valve leaflets appear normal. There is no evidence of stenosis, fluttering, or prolapse. There is no mitral regurgitation noted. Aortic Valve: The aortic valve is trileaflet. The aortic valve is mildly calcified. The aortic valve opens well. No aortic regurgitation is present. Tricuspid Valve: The tricuspid valve is not well visualized, but is grossly normal. No tricuspid regurgitation. Pulmonary artery pressures cannot be estimated because of the lack of a measurable TR jet velocity but the IVC suggests a CVP of around 3 mmHg. Pulmonic Valve: The pulmonic valve is not well visualized. Great Vessels: The aortic root is normal size. The dimensions of the ascending aorta are normal. The pulmonary is not well visualized. The IVC is of normal diameter and collapses greater than 50% with a sniff. This suggests a low right atrial pressure of 3 mm Hg. Pericardium/ Pleura There is no pericardial effusion. MMode/2D Measurements & Calculations LVIDd: 4.2 cm LVOT diam: 2.1 cm LVIDs: 2.9 cm Ao root diam: 3.6 cm FS: 32.1 % asc Aorta Diam: 3.3 cm EPSS: 1.3 cm IVSd: 0.96 cm LVPWd: 1.1 cm LV zaragoza. diameter/BSA (cm/m^2): 2.1 LV sys. diameter/BSA (cm/m^2): 1.4 LA A4 area: 20.3 cm2 RA long axis: 4.4 cm LA length (vol): 6.2 cm RA area: 12.0 cm2 RA vol: 27.7 ml RA : 13.9 ml/m2 IVC diam: 1.4 cm TAPSE: 2.1 cm Doppler Measurements & Calculations Ao V2 max: 101.4 cm/sec LVOT Max Bossman: 99.5 cm/sec Ao V2 mean: 72.9 cm/sec LV V1 max P.0 mmHg Ao max P.1 mmHg LV V1 VTI: 19.9 cm Ao mean P.3 mmHg MASOOD(I,D): 3.4 cm2 Ao V2 VTI: 21.1 cm MASOOD(V,D): 3.5 cm2 sev ratio: 0.94 MASOOD indexed to BSA (cm^2/m^2): 1.7 MV E max bossman: 52.7 cm/sec SV(LVOT): 71.9 ml MV A max bossman: 65.9 cm/sec MV E/A: 0.80 Med Peak E' Bossman: 5.8 cm/sec E/E' med: 9.2 Lat Peak E' Bossman: 10.0 cm/sec E/E' lat: 5.3 E/e' average: 7.2 MV dec time: 0.21 sec Reading Physician:02:35 PM ECG: My impression: Sinus rhythm with first-degree AV block Radiologist's impression: [address] [address] Test Date: 2025-01-21 Pat Name: Gonzalo Mckeon Department: [facility] Room: Gender: Male 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 : 1950 Requested By: Order Number: [id number] Reading MD: Ramsey Pearl Measurements Intervals Lyles Rate: 89 P: 3 WY: 238 QRS: 4 QRSD: 74 T: 16 QT: 352 QTc: 428 Interpretive Statements Sinus rhythm with 1st degree AV block Electronically Signed On 01-21-2025 17:06:46 PDT by Ramsey Stallworth 01/21/25 13:58 01/21/25 13:58 [facility] Medical History Lumbar radiculopathy Lumbar facet arthropathy Lumbar degenerative disc disease Lumbar spondylosis Chronic low back pain Chronic constipation Orthostatic hypotension Depression Vision disorder Hearing deficit Mild single current episode of major depressive disorder (08/06/16) Hyperlipidemia (08/06/16) Surgical History Anesthesia History of foot surgery History of surgery Family History Father Cancer Grandmother No problems noted. Mother No problems noted. Grandfather No problems noted. 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/yazidism: Agnostic leisure activities: exercise and other Smoking Status: Current every day smoker Tobacco: How many years used: 20 Smokeless tobacco user: other quit status: has quit before second hand exposure: No alcohol intake: never substance use type: marijuana Discharge Assessment & Plan Assessment and Plan Plan of Treatment: Home health skilled therapies to help him recover from his event Oral Keppra for seizure prevention Plavix plus aspirin for 21 days as well as atorvastatin for stroke risk reduction Very urgent outpatient neurological follow-up Very urgent outpatient primary care follow-up Discharge Plan Discharge Plan Patient Disposition: Home Health Service Provider Discharge Comment: Urgent referral to outpatient Neurology in process Discharge orders & Medications Prescriptions: New clopidogrel 75 mg Tablet 75 mg PO DAILY Qty: 20 0RF levetiracetam 500 mg tablet 500 mg PO BID Qty: 60 3RF aspirin 81 mg tablet,delayed release (DR/EC) 81 mg PO DAILY Qty: 365 0RF atorvastatin 20 mg tablet 20 mg PO DAILY Qty: 30 8RF Continued mirtazapine 15 mg tablet 15 mg PO BEDTIME Qty: 90 3RF meloxicam 15 mg tablet 15 mg PO DAILY Qty: 90 1RF Rx Instructions: PLEASE TAKE WITH FOOD. DON'T USE ANY OTHER NSAIDS WITH THIS MEDICATION acetaminophen [Tylenol Extra Strength] 500 mg tablet 500 mg PO Q6H Follow up/Referrals: Markus Boone MD [Primary Care Provider] - 1 Week (Primary care clinic staff to reach out to patient with the appointment) Diet/Activity/Treatments Diet: Diet as Tolerated Visit Report/Discharge Packet Stand Alone Forms: Patient Portal/API, Stroke Signs & Symptoms Discharge Data Primary Care Provider: Markus Boone Quality VTE Deep Vein Thrombosis/Pulmonary Embolism Present on Admission: No IH PROFEE Charge Codes Discharge inpatient/observation: 36577
--- NOTE | 2025-01-24 11:35 | PC.NURSE ---
Patient alert and oriented x2. He does have some confusion. NIH 2. Patient has some issues with arm drifting downward. His x is in the room visiting. Patient is going to be discharged today.
--- NOTE | 2025-01-24 14:17 | CM.DPC ---
DCP Discharge Home Per MD, pt medically stable to discharge home today with close outpt f/u and no identified barriers to discharge. PT yesterday cleared pt for home with ex- to stay and assist pt and outpt PT. SW printed local outpt PT list and RN kindly gave to pt and ex- with discharge instructions and ex- agreeable with providing transport back to [facility] today. LUIZ notified TCM group for scheduling outpt f/u with his PCP Dr. Boone. POPPY Maldonado
== END 2025-01-24 14:05 | disposition home health service (06) | DRG 64 ==
LOC: ED 16:04 → AC 17:03
PROVIDERS: Admitting Provider Family Medicine; Emergency Provider Emergency Medicine; PCP Internal Medicine; Referring Provider Emergency Medicine; Visit Provider Internal Medicine
DX: I63.9 Cerebral infarction, unspecified (principal); G04.90 Encephalitis and encephalomyelitis, unspecified; G40.109 Localization-related (focal) (partial) symptomatic epilepsy and epileptic syndromes with simple partial seizures, not intractable, without status epilepticus; R22.0 Localized swelling, mass and lump, head; G83.24 Monoplegia of upper limb affecting left nondominant side; D32.0 Benign neoplasm of cerebral meninges; R29.701 NIHSS score 1; R29.702 NIHSS score 2; M54.16 Radiculopathy, lumbar region; I95.1 Orthostatic hypotension; F32.A Depression, unspecified; K59.09 Other constipation; Z80.9 Family history of malignant neoplasm, unspecified; Z79.1 Long term (current) use of non-steroidal anti-inflammatories (NSAID); Z88.2 Allergy status to sulfonamides; E78.5 Hyperlipidemia, unspecified; F17.210 Nicotine dependence, cigarettes, uncomplicated; F03.90 Unspecified dementia, unspecified severity, without behavioral disturbance, psychotic disturbance, mood disturbance, and anxiety
CPT/HCPCS: 36415; 70450; 70496; 70498; 70551; 70552; 71045; 80053; 80061; 80305; 82550; 83036; 83735; 84484; 85025; 85610; 85730; 92610; 93005; 93306; 97116; 97162; 97166; 97530; 99223; 99233; 99239; 99284; J1100; J1650; J1953; J2060; Q9967